=== PATIENT | female | born 2000 | race American Indian/Alaskan Native ===

== ENCOUNTER 2020-05-06 15:05 | Emergency (ER) | payer OTHER ==
--- OUTSIDE RECORDS SUMMARY | 2020-05-06 15:06 | XMS REPORT | Summary of Care ---
:1999 Author Organization [facility] - Health Address [address] [place] [address] Care Team Providers Name Role Phone Ion Ramirez Medicaid Hmo Marshall Hale MD Primary Care Provider Encounter Details Date Type Department Care Team Description 02/18/2020 Orders Only [facility] Doctor Unassigned, No [address] [facility] [place] [address] [address] [place] [address] Allergies Active Allergy Reactions Severity Noted Date Comments Amoxicillin-Pot Clavulanate Rash 10/14/2014 Diphenhydramine Hcl Hives 10/14/2014 Penicillins Hives Low 05/21/2017 Sulfa (Sulfonamide Antibiotics) Hives 5 Pt allergic to Bactrum documented as of this encounter (statuses as of 02/25/2020) Medications Medication Sig Dispensed Refills Start Date End Date Status proMETHazine 25 mg Take 1 tablet by 30 tablet 0 01/17/2020 Active tabletIndications: mouth every 6 Supervision of high (six) hours as risk in first needed for Nausea trimester and Vomiting (N/V). multivitamin Take 1 tablet by 90 tablet 3 01/17/2020 Active ( VITAMIN) mouth daily. tabletIndications: Supervision of high risk in first trimester Miscellaneous Medical Use as directed 1 Each 0 01/17/2020 Active Supply (BLOOD PRESSURE CUFF) MiscIndications: Elevated blood pressure reading without diagnosis of hypertension documented as of this encounter (statuses as of 02/25/2020) Active Problems Problem Noted Date care, first trimester 02/10/2020 UTI (urinary tract infection) during 020 Overview: Pending ELSLIE Supervision of high-risk 01/17/2020 Nausea and vomiting in 01/17/2020 History of seizure 01/17/2020 Overview: Reports as child last at age 1 Elevated blood pressure reading without diagnosis of h ypertension 01/17/2020 Class 1 obesity with body mass index (BMI) of 30.0 to 30.9 in adult, 10/21/2019 unspecified obesity type, unspecified whether serious comorbidity present Obesity in 10/21/2019 Estimated Date of Delivery Comments Yes 09/24/2020 Based on last menstr ual period of 12/19/2019 (Exact Date) documented as of this encounter (statuses as of 02/25/2020) Resolved Problems Problem Noted Date Resolved Date Screening examination for STD (sexually transmitted disease) 10/19/2018 01/17/2020 Encounter for initial prescription of contraceptives 016 09/19/2017 Irregular menstrual cycle 07/22/2016 01/17/2020 Nexplanon insertion 10/14/2014 09/19/2017 Risky sexual behavior 10/14/2014 09/19/2017 Encounter for routine gynecological examination 10/14/2014 09/19/2017 Overview: ICD10 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 documented as of this encounter (statuses as of 02/25/2020) Immunizations Name Administration Dates Next Due Tdap 04/15/2014 documented as of this encounter Social History Tobacco Use Types Packs/Day Years Used Date Never Smoker Smokeless Tobacco: Never Used Alcohol Use Drinks/Week oz/Week Comments No Estimated Date of Delivery Comments Yes 09/24/2020 Based on last menstr ual period of 12/19/2019 (Exact Date) Sex Assigned at Date Recorded Not on file Job Start Date Occupation Industry Not on file Not on file Not on file Travel History Travel Start Travel End No recent travel history available. COVID-19 Exposure Response Date Recorded In the last month, have you been in contact with No / Unsure 02/18/2020 1:15 PM CDT someone who was confirmed or suspected to have Coronavirus / COVID-19? documented as of this encounter Last Filed Vital Signs Not on filedocumented in this encounter Plan of Treatment Date Type Specialty Care Team Description 02/26/2020 Reconstructive Surgeon Visit Phlebotomy 2, Adc Lab 03/16/2020 Routine Visit Obstetrics & Hale, Esme Olivares MD Gynecology [address] [place] [address] [address]. Flores [place] [id number] 15 [phone] Health Maintenance Due Date Last Done Comments WELL CARE VISIT: 12-01/10/2020 2019 YEARS (yearly) Depression Screening 04/24/2020 04/24/2019 HPV VACCINES (1 - Female 10/21/2020 Postpon ed from 2-dose series) 2010 (Refu sed) INFLUENZA VACCINE (Season 10/21/2020 Postpo vipin from Ended) 05/12/2020 (Refu sed) MENINGOCOCCAL B VACCINES (1 10/21/2020 Post poned from of 2 - Risk Bexsero 2-dose 01/09 (Insurance / series) Financial) CHLAMYDIA SCREENING 01/16/2021 01/17/2020, 10/21/2019, 10/21/2019, Additional history exists PAP SMEAR 01/16/2023 01/17/2020 DTaP,Tdap,and Td Vaccines 04/15/2024 04/15/2014 (2 - Td) MENINGOCOCCAL VACCINE Aged Out No longer eligible based on patient 's age to complete this topic PNEUMOCOCCAL 0-64 YEARS Aged Out No longe r eligible COMBINED SERIES based on patient 's age to complete this topic documented as of this encounter Procedures Procedure Name Priority Date/Time Associated Diagnosis Comme nts MANAGEMENT PSYCHOLOGIST CLINIC ULTRASOUND Routine 02/18/2020 12:01 AM CDT documented in this encounter Results Not on filedocumented in this encounter Insurance Payer Benefit Plan / Subscriber ID Effective Dates Phone Addre ss Type Group AETNA AETNA HMO [id number] 2015-[facility]en O t [facility] MEDICAID OF xxxxxxxxx 2020-Present [phone] [address] Medicaid [place] [address] [place] [address] documented as of this encounter Advance Directives Name Relationship Healthcare Agent Communication Relationship Christina Bueno Mother Primary healthcare agent
--- OUTSIDE RECORDS SUMMARY | 2020-05-06 15:07 | XMS REPORT | Summary of Care ---
:1999 Author Organization [facility] - [facility] Address [address] [place] [address] Care Team Providers Name Role Phone Ion Ramirez Medicaid Hmo Marshall Hale MD Primary Care Provider Reason for Visit Reason Comments Results Encounter Details Date Type Department Care Team Description 03/05/2020 Telephone [facility] Saul Cam RN Results [address] [address] [place] [address] Allergies Active Allergy Reactions Severity Noted Date Comments Amoxicillin-Pot Clavulanate Rash 10/14/2014 Diphenhydramine Hcl Hives 10/14/2014 Penicillins Hives Low 05/21/2017 Sulfa (Sulfonamide Antibiotics) Hives 5 Pt allergic to Bactrum documented as of this encounter (statuses as of 03/05/2020) Medications Medication Sig Dispensed Refills Start Date [...] as of this encounter (statuses as of 03/05/2020) Active Problems Problem Noted Date care, first trimester 02/10/2020 UTI (urinary tract infection) during 020 Overview: Pending LESLIE Supervision of high-risk 01/17/2020 Nausea and vomiting [...] as of this encounter (statuses as of 03/05/2020) Resolved Problems Problem Noted Date Resolved Date Screening examination for STD (sexually transmitted disease) 10/19/2018 01/17/2020 Encounter for initial prescription of contraceptives 016 09/19/2017 Irregular menstrual cycle 07/22/2016 01/17/2020 Nexplanon insertion 10/14/2014 09/19/2017 Risky sexual behavior 10/14/2014 09/19/2017 Encounter for routine gynecological examination 10/14/2014 09/19/2017 Overview: ICD10 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 documented as of this encounter Last Filed Vital Signs Not on filedocumented in this encounter Plan of Treatment Date Type Specialty Care Team Description 03/16/2020 Routine Obstetrics & Hale, Esme Olivares MD Visit Gynecology [address] [place] [address] [address]. Flores [place], [place] [address] [phone] Health Maintenance Due Date Last Done Comments [...] this topic documented as of this encounter Results Not on filedocumented in this encounter Insurance Payer Benefit Plan / Subscriber ID Effective Dates Phone Addre ss Type Group AETNA AETNA HMO [id number] 2015-[facility]en [facility] O t [facility] MEDICAID OF xxxxxxxxx 2020-Present [phone] [address] Medicaid [place] [id number] [place] [phone] documented as of this encounter Advance Directives Name Relationship Healthcare Agent Communication Relationship Christina Bueno Mother Primary healthcare agent
--- OUTSIDE RECORDS SUMMARY | 2020-05-06 15:07 | XMS REPORT | Summary of Care ---
:1999 Author Organization [facility] - [facility] Address [address] [place] [address] Care Team Providers Name Role Phone Ion Ramirez Medicaid Hmo Marshall Hale MD Primary Care Provider Reason for Visit Reason Comments Notification Encounter Details Date Type Department Care Team Description 03/02/2020 Telephone [facility] Women[facility] Esme Hale MD Notification Healthcare- [address] [place] [address] [address] [place] [address] [place] [address] [phone] Allergies Active Allergy Reactions Severity Noted Date Comments Amoxicillin-Pot Clavulanate Rash 10/14/2014 Diphenhydramine Hcl Hives 10/14/2014 Penicillins Hives Low 05/21/2017 Sulfa (Sulfonamide Antibiotics) Hives 5 Pt allergic to Bactrum documented as of this encounter (statuses as of 03/02/2020) Medications Medication Sig Dispensed Refills Start Date [...] as of this encounter (statuses as of 03/02/2020) Active Problems Problem Noted Date care, first [...] as of this encounter (statuses as of 03/02/2020) Resolved Problems Problem Noted Date Resolved Date Screening examination for STD (sexually transmitted disease) 10/19/2018 01/17/2020 Encounter for initial prescription of contraceptives 016 09/19/2017 Irregular menstrual cycle 07/22/2016 01/17/2020 Nexplanon insertion 10/14/2014 09/19/2017 Risky sexual behavior 10/14/2014 09/19/2017 Encounter for routine gynecological examination 10/14/2014 09/19/2017 Overview: ICD10 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 Flores [place], [place] [address] [phone] Health Maintenance Due Date Last Done Comments WELL CARE VISIT: 12-21 01/10/2020 2019 YEARS (yearly) Depression Screening 04/24/2020 04/24/2019 [...] Addre ss Type Group AETNA AETNA HMO [id number] [facility] MEDICAID OF xxxxxxxxx 2020-Present [phone] [address] Medicaid [place] [address] [place] [address] documented as of this encounter Advance Directives Name Relationship Healthcare Agent Communication Relationship Christina Bueno Mother Primary healthcare agent
--- OUTSIDE RECORDS SUMMARY | 2020-05-06 15:07 | XMS REPORT | Summary of Care ---
:[address] [facility] Address [address] [place] [address] Care Team Providers Name Role Phone Ion Ramirez Medicaid Hmo Marshall Hale MD Primary Care Provider Reason for Visit Reason Comments ROUTINE VISIT Encounter Details Date Type Department Care Team Description 02/18/2020 Routine [facility] Women's Esme Hale am, MD Supervision of high risk in fi rst trimester (Primary Dx); Visit Healthcare- [address] [place] [address] 8 weeks station of [place] [address] [place] [address] Drive, [address] [place] [address] [phone] Allergies Active Allergy Reactions Severity Noted Date Comments Amoxicillin-Pot Clavulanate Rash 10/14/2014 Diphenhydramine Hcl Hives 10/14/2014 Penicillins Hives Low 05/21/2017 Sulfa (Sulfonamide Antibiotics) Hives 5 Pt allergic to Bactrum documented as of this encounter (statuses as of 02/26/2020) Medications Medication Sig Dispensed Refills Start Date End Date Status proMETHazine 25 mg Take 1 tablet 30 tablet 0 01/17/2020 Active tabletIndications: by mouth Supervision of every 6 (six) high risk hours as in first needed for trimester Nausea and Vomiting (N/V). Take 1 tablet 90 tablet 3 01/17/2020 Activ e multivitamin by mouth ( VITAMIN) daily. tabletIndications: Supervision of high risk in first trimester Miscellaneous Use as 1 Each 0 01/17/2020 Activ e Medical Supply directed (BLOOD PRESSURE CUFF) MiscIndications: Elevated blood pressure reading without diagnosis of hypertension Nitrofurantoin&Nit Take 1 20 capsule 0 01/20/2020 Discontinued . Macrocryst capsule by 0 (Patie nt (MACROBID) 100 mg mouth 2 (two) Reported) capsuleIndications times daily. : Urinary tract infection in mother during , antepartum documented as of this encounter (statuses as of 02/26/2020) Active Problems Problem Noted Date care, first [...] as of this encounter (statuses as of 02/26/2020) Resolved Problems Problem Noted Date Resolved Date Screening examination for STD (sexually transmitted disease) 10/19/2018 01/17/2020 Encounter for initial prescription of contraceptives 016 09/19/2017 Irregular menstrual cycle 07/22/2016 01/17/2020 Nexplanon insertion 10/14/2014 09/19/2017 Risky sexual behavior 10/14/2014 09/19/2017 Encounter for routine gynecological examination 10/14/2014 09/19/2017 Overview: ICD10 Diagnosis 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 documented as of this encounter (statuses as of 02/26/2020) Immunizations Name Administration Dates Next Due Tdap [...] of this encounter Last Filed Vital Signs Vital Sign Reading Time Taken Comments Blood Pressure 117/69 02/18/2020 1:29 PM CDT Pulse 71 02/18/2020 1:29 PM CDT Temperature 36.6 C (97.9 F) 02/18/2020 1:29 PM CDT Respiratory Rate 18 02/18/2020 1:29 PM CDT Oxygen Saturation - - Inhaled Oxygen Concentration - - Weight 73 kg (161 lb) 02/18/2020 1:29 PM CDT Height 152.4 cm (5') 02/18/2020 1:29 PM CDT Body Mass Index 31.44 02/18/2020 1:29 PM CDT documented in this encounter Progress Notes Esme Hale MD - 02/18/2020 1:15 PM CDT Chief complaint: Chief Complaint Patient presents with ROUTINE VISIT HPI Gem Hackett is a 20 year old female @ 8w5d by Patient's last menstrual period was 12/19/2019 (exact date). here for visit. Denies vaginal bleeding or cramping. Histories OB History Para Term AB Living 1 0 0 0 0 0 SAB TAB Ectopic Multiple Live Births 0 0 0 0 0 # Outcome Date GA Lbr Michael/2nd Weight Sex Delivery Anes PTL Lv 1 Current Past Medical History: Diagnosis Date Asthma Childhood Febrile seizure 1999 Childhood Irregular menstrual cycle 07/22/2016 Screening examination for STD (sexually transmitted disease) Family History Problem Relation Age of Onset Asthma Maternal Aunt No Significant Medical Problems Paternal Aunt High cholesterol Maternal Grandfather Hypertension Maternal Grandfather No Significant Medical Problems Mother No Significant Medical Problems Father No Significant Medical Problems Brother No Significant Medical Problems Maternal Uncle No Significant Medical Problems Paternal Uncle No Significant Medical Problems Maternal Grandmother Arthritis NoFHx defects NoFHx Breast Cancer NoFHx Colon Cancer NoFHx Ovarian Cancer NoFHx Uterine Cancer NoFHx Cancer NoFHx Depression NoFHx Diabetes NoFHx Genetic NoFHx Heart NoFHx Neurological NoFHx Osteoporosis NoFHx Psychiatry NoFHx Other - see comments NoFHx Mental retardation NoFHx Family Status Relation Name Status MAunt Alive PAunt Alive MGFa Alive Mo Alive Fa Alive Bro Alive MUnc Alive PUnc Alive MGMo Alive PGMo Alive PGFa NoFHx (Not Specified) Past Surgical History: Procedure Laterality Date TONSILLECTOMY 09/2016 Social History Socioeconomic History Marital status: Single Spouse name: Not on file Number of children: Not on file Years of education: 9 Highest education level: Not on file Occupational History Occupation: student Social Needs Financial resource strain: Not on file Food insecurity: Worry: Not on file Inability: Not on file Transportation needs: Medical: Not on file Non-medical: Not on file Tobacco Use Smoking status: Never Smoker Smokeless tobacco: Never Used Substance and Sexual Activity Alcohol use: No Drug use: No Sexual activity: Yes Partners: Male control/protection: None Comment: last sexual intercourse: 01/06/2020 Lifestyle Physical activity: Days per week: Not on file Minutes per session: Not on file Stress: Not on file Relationships Social connections: Talks on phone: Not on file Gets together: Not on file Attends spiritism service: Not on file Active member of club or organization: Not on file Attends meetings of clubs or organizations: Not on file Relationship status: Not on file Intimate partner violence: Fear of current or ex partner: Not on file Emotionally abused: Not on file Physically abused: Not on file Forced sexual activity: Not on file Other Topics Concern Service Not Asked Blood Transfusions No Caffeine Concern Not Asked Occupational Exposure Not Asked Hobby Hazards Not Asked Sleep Concern Not Asked Stress Concern Not Asked Weight Concern Not Asked Special Diet Not Asked Back Care Not Asked Exercise Not Asked Bike Helmet Not Asked Seat Belt Not Asked Self-Exams Not Asked Social History Narrative Patient lives with mother and brothers, feels safe at home. Patient has 1 dog. Social History Substance and Sexual Activity Sexual Activity Yes Partners: Male control/protection: None Comment: last sexual intercourse: 01/06/2020 Labs No new labs Radiology No new radiology. Allergies Gem is allergic to augmentin [amoxicillin-pot clavulanate]; benadryl [diphenhydramine hcl]; sulfa (sulfonamide antibiotics); and penicillins. Medications Gem has a current medication list which includes the following prescription(s): miscellaneous medical supply, multivitamin, and promethazine. Review of Systems Constitutional: Negative for chills, fatigue and fever. HENT: Negative for congestion, rhinorrhea, sneezing and sore throat. Eyes: Negative for photophobia and visual disturbance. Respiratory: Negative for cough, chest tightness, shortness of breath and wheezing. Cardiovascular: Negative for chest pain and palpitations. Gastrointestinal: Negative for abdominal distention, abdominal pain, constipation, diarrhea, nausea and vomiting. Genitourinary: Negative for dysuria, urgency, frequency, vaginal bleeding and vaginal discharge. Skin: Negative for rash. Neurological: Negative for syncope and headaches. Hematological: Does not bruise/bleed easily. BP 117/69 (BP Location: Left arm, Patient Position: Sitting, BP CUFF SIZE: Adult Medium) | Pulse 71 | Temp 36.6 C (97.9 F) (Oral) | Resp 18 | Ht 5' (1.524 m) | Wt 161 lb (73 kg) | LMP 12/19/2019 (Exact Date) | BMI 31.44 kg/m Pregravid BMI: 31.8 Physical Exam Vitals reviewed. Constitutional: She is oriented to person, place, and time. Her body habitus is obese. Cardiovascular: Regular rate and rhythm. Pulmonary/Chest: Normal inspiratory effort. Abdominal: Abdomen is soft. No tenderness present. No hernia palpated or inspected. Neuro/Psychiatric: She has a normal mood and affect. She is oriented to person, place, and time. Skin: Skin normal. No rash present. Assessment/Plan See OB Summary Return to clinic in 4 weeks. Reviewed patient instructions and provided printed copy. Activity restrictions: As tolerated at 8w5d This visit did not involve counseling and coordination that comprised more than 50% of the visit time. Esme Hale MD 02/18/2020 5:21 PM documented in this encounter Plan of Treatment Date Type Specialty Care Team Description 03/16/2020 Routine Obstetrics & Esme Hale MD Visit Gynecology [address] [place] [address] [address] [place] [address] [phone] Health Maintenance Due Date Last Done Comments WELL CARE VISIT: 08-3101/10/2020 2019 YEARS (yearly) Depression Screening 04/24/2020 04/24/2019 [...] Name Priority Date/Time Associated Diagnosis Comme nts <14 WEEKS US Routine 02/18/2020 5:13 Supervision of high Resu lts for this LIMITED PM CDT risk in [facility] are in first trimester the results 8 weeks gestation of section . ADC / LCC - DRUG Routine 02/18/2020 3:00 8 weeks gestation of Results for this SCREEN TRIAGE PM CDT procedure are in the results section. URINE CULTURE Routine 02/18/2020 3:00 8 weeks gestation of Re sults for this PM CDT procedure are i n the results section. POCT URINALYSIS W/O Routine 02/18/2020 8 weeks gestation of Results for this SPECIFIC GRAVITY procedure a re in the results section. documented in this encounter Results <14 WEEKS US LIMITED (02/18/2020 5:13 PM CDT) Specimen Narrative Performed At This result has an attachment that is no t available. Limited USG for FHT: Single live IUP measured 9 1/7 weeks, consistent PACS with LMP. Will date by LMP unless indicated Panfilo Hale MD 02/18/2020 5:15 PM Performing Organization Address City/State/Zipcode Phone Number PACS ADC / LCC - DRUG SCREEN TRIAGE (02/18/2020 3:00 PM CDT) Pathologist Sig nature BENZO U Negative Negative [facility] ANDREI U Negative Negative [facility] AMPHET Negative Negative [facility] THC Negative Negative [facility] METHADONE Negative Negative [facility] Meth U Negative Negative [facility] OPIATES Negative Negative [facility] Cocaine Metabolite Negative Negative [facility] PROPOXY Negative Negative [facility] Tric U Negative Negative [facility] PCP Negative Negative [facility] OXYCOD Negative Negative [facility] Specimen Urine - URINE, CLEAN CATCH Narrative Performed At Urine Drug Cutoff Ranges [facility] Benzodiazepines: 150 ng/mL Barbiturates: 200 ng/mL Amphetamine: 500 ng/mL Cannabinoids: 50 ng/mL Methadone: 200 ng/mL Methamphetamine: 500 ng/mL Opiates: 100 ng/mL or 2000 ng/mL Cocaine: 150 ng/mL Propoxyphene: 300 ng/mL Tricyclics: 300 ng/mL Oxycodone: 100 ng/mL PCP: 25 ng/mL The results are to be used only for medical (i.e., treatment) purposes. Unconfirmed screening results must not be used for non-medical purposes (e.g., employment testing, legal testing). Performing Organization Address City[facility] Phone Number [facility] CLIA: [id number], [address] [place], [place] [address] URINE CULTURE (02/18/2020 3:00 PM CDT) Pathologist Sig nature URINE CULTURE No aerobic growth [facility] (< 1000 CFU/mL) SERVICES Specimen Urine - URINE, CLEAN CATCH Performing Organization Address City/[facility] Phone Number [facility] CLIA: [id number], [address] [place], [place] [address] [facility] POCT URINALYSIS W/O SPECIFIC GRAVITY (02/18/2020) Pathologist Sig nature POCT PH U N/A 5 - 8 mg/dl POCT U LEUK EST N/A Negative - Negative POCT U NIT N/A Negative - Negative POCT U PROT Negative Negative - Negative POCT U GLU Negative Negative - Negative POCT U KETONE N/A Negative - Negative POCT U BLD N/A Negative - Negative Specimen Urine - URINE, CLEAN CATCH documented in this encounter Visit Diagnoses Diagnosis Supervision of high risk in fi rst trimester - Primary Unspecified high-risk 8 weeks gestation of state, incidental documented in this encounter Insurance Payer Benefit Plan / Subscriber ID Effective Dates Phone Addre ss Type Group AETNA AETNA O [id number] 2015-[facility] O t [facility] MEDICAID OF xxxxxxxxx 2020-Present [phone] Medicaid [place] [id number] [place] [phone] documented as of this encounter Advance Directives Name Relationship Healthcare Agent Communication Relationship Christina Bueno Mother Primary healthcare agent "
--- OUTSIDE RECORDS SUMMARY | 2020-05-06 15:07 | XMS REPORT | Summary of Care ---
:1999 Author Organization [facility] Address [address] [place] [address] Care Team Providers Name Role Phone Ion Ramirez Medicaid Hmo Marshall Hale MD Primary Care Provider Reason for Visit Reason Comments TEST RESULTS Panorama Low Risk / Female Encounter Details Date Type Department Care Team Description 03/11/2020 Case Management [facility] Women's Esme [place] MD TEST RESULTS Healthcare- [address] ([facility] / [address] [place] [address] [address], [address] [address] [phone] Allergies Active Allergy Reactions Severity Noted Date Comments Amoxicillin-Pot Clavulanate Rash 10/14/2014 Diphenhydramine Hcl Hives 10/14/2014 Penicillins Hives Low 05/21/2017 Sulfa (Sulfonamide Antibiotics) Hives 5 Pt allergic to Bactrum documented as of this encounter (statuses as of 03/11/2020) Medications Medication Sig Dispensed Refills Start Date [...] as of this encounter (statuses as of 03/11/2020) Active Problems Problem Noted Date care, first [...] as of this encounter (statuses as of 03/11/2020) Resolved Problems Problem Noted Date Resolved Date Screening examination for STD (sexually transmitted disease) 10/19/2018 01/17/2020 Encounter for initial prescription of contraceptives 016 09/19/2017 Irregular menstrual cycle 07/22/2016 01/17/2020 Nexplanon insertion 10/14/2014 09/19/2017 Risky sexual behavior 10/14/2014 09/19/2017 Encounter for routine gynecological examination 10/14/2014 09/19/2017 Overview: ICD10 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 Patient can discuss Panorama results with provider on 03/16/20 PN visit. documented in this encounter Plan of Treatment Date Type Specialty Care Team Description 03/16/2020 Routine Visit Obstetrics & [place], Esme Olivares MD Gynecology [address] [place] [address] DR. Flores [place], [place] [address] [phone] 03/17/2020 Therapist Rrt Visit Maternal 5, [facility] Room Medicine Health Maintenance Due Date Last Done Comments WELL CARE VISIT: -01/10/2020 2019 YEARS (yearly) Depression Screening 04/24/2020 04/24/2019 HPV VACCINES (1 - Female 10/21/2020 Postpon ed from 2-dose series) 2010 (Refu sed) INFLUENZA VACCINE (#1) 2020 Postponed from 05/12/2020 (Refu sed) MENINGOCOCCAL B VACCINES (1 [...] Addre ss Type Group AETNA AETNA HMO [id number] 2015-Presen HM O t [facility] MEDICAID OF xxxxxxxxx 2020-Present [phone] [place] [id number] [place] [address] documented as of this encounter Advance Directives Name Relationship Healthcare Agent Communication Relationship Christina Bueno Mother Primary healthcare agent
--- OUTSIDE RECORDS SUMMARY | 2020-05-06 15:07 | XMS REPORT | Summary of Care ---
:1999 Author Organization [facility] Address [address] [place] [address] Care Team Providers Name Role Phone Ion Ramirez Medicaid Hmo Marshall Hale MD Primary Care Provider Reason for Visit Reason Comments Exposure asymptomatic- COVID Encounter Details Date Type Department Care Team Description 03/03/2020 Laboratory Only [facility] Family Jess El, SOCIAL SERVICES COORDINATOR [address] [address] Suspected Covid-19 Medicine - [place] [facility], Adc Fam Pob I Virus Infection [address] [place] [address] (Primary [place]) [place] [address] Allergies Active Allergy Reactions Severity Noted Date Comments Amoxicillin-Pot Clavulanate Rash 10/14/2014 Diphenhydramine Hcl Hives 10/14/2014 Penicillins Hives Low 05/21/2017 Sulfa (Sulfonamide Antibiotics) Hives 5 Pt allergic to Bactrum documented as of this encounter (statuses as of 03/03/2020) Medications Medication Sig Dispensed Refills Start Date [...] as of this encounter (statuses as of 03/03/2020) Active Problems Problem Noted Date care, first [...] as of this encounter (statuses as of 03/03/2020) Resolved Problems Problem Noted Date Resolved Date Screening examination for STD (sexually transmitted disease) 10/19/2018 01/17/2020 Encounter for initial prescription of contraceptives 016 09/19/2017 Irregular menstrual cycle 07/22/2016 01/17/2020 Nexplanon insertion 10/14/2014 09/19/2017 Risky sexual behavior 10/14/2014 09/19/2017 Encounter for routine gynecological examination 10/14/2014 09/19/2017 Overview: ICD10 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 Flores [place], [place] [address] [phone] Health Maintenance Due Date Last Done Comments [...] Results Not on filedocumented in this encounter Visit Diagnoses Diagnosis Suspected Covid-19 Virus Infection - [facility] documented in this encounter Insurance Payer Benefit Plan / Subscriber ID Effective Dates Phone Addre ss Type Group AETNA AETNA HMO [id number] 2015-Presen HM O t [facility] MEDICAID OF xxxxxxxxx 2020-Present [phone] [address] Medicaid [place] [id number] [place] [address] documented as of this encounter Advance Directives Name Relationship Healthcare Agent Communication Relationship Christina Bueno Mother Primary healthcare agent
--- OUTSIDE RECORDS SUMMARY | 2020-05-06 15:07 | XMS REPORT | Summary of Care ---
:1999 Author Organization [facility] - [facility] Address [address] [place] [address] Care Team Providers Name Role Phone Ion Ramirez Medicaid Hmo Marshall Hale MD Primary Care Provider Reason for Visit Reason Comments Exposure asymptomatic- COVID Encounter Details Date Type Department Care Team Description 03/03/2020 Laboratory Only [facility] Family Jess El, STRAIGHT KNIFE CUTTER MACHINE [address] [address] Suspected Covid-19 Medicine - [place] [facility], Adc Fam Pob I Virus Infection [address] [place] [address] ([place] [address] Allergies Active Allergy Reactions Severity [...] examination 10/14/2014 09/19/2017 Overview: ICD10 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 Flores [place], [place] [address] [phone] Name Type Priority Associated Diagnoses Order S lisale COVID-19 (PCR MOLECULAR LAB Routine Suspected Covid-1 9 Virus Expected: 03/03/2020, TESTING) Infection Expires: 2020 Health Maintenance Due Date Last Done Comments [...] Diagnoses Diagnosis Suspected Covid-19 Virus Infection - Mayra deven documented in this encounter Insurance Payer Benefit Plan / Subscriber ID Effective Dates Phone Addre ss Type Group AETNA AETNA HMO [id number] 2015-Leah O t [facility] MEDICAID OF xxxxxxxxx 2020-Present [phone] [address] Medicaid [place] [id number] [place] [id number] documented as of this encounter Advance Directives Name Relationship Healthcare Agent Communication Relationship Christina Bueno Mother Primary healthcare agent
--- OUTSIDE RECORDS SUMMARY | 2020-05-06 15:07 | XMS REPORT | Summary of Care ---
:1999 Author Organization [facility] - [facility] Address [address] [place] [address] Care Team Providers Name Role Phone Ion Ramirez Medicaid Hmo Marshall Hale MD Primary Care Provider Reason for Visit Reason Comments TEST RESULTS HORIZON NEGATIVE Encounter Details Date Type Department Care Team Description 03/04/2020 Case Management [facility] Women's Esme Hale MD TEST RESULTS Healthcare- [address] (HORIZON NEGATIVE) [address] [place] [address] DR[address] Kend[address], [address] [address] [phone] Allergies Active Allergy Reactions Severity Noted Date Comments Amoxicillin-Pot Clavulanate Rash 10/14/2014 Diphenhydramine Hcl Hives 10/14/2014 Penicillins Hives Low 05/21/2017 Sulfa (Sulfonamide Antibiotics) Hives 5 Pt allergic to Bactrum documented as of this encounter (statuses as of 03/04/2020) Medications Medication Sig Dispensed Refills Start Date [...] as of this encounter (statuses as of 03/04/2020) Active Problems Problem Noted Date care, first [...] as of this encounter (statuses as of 03/04/2020) Resolved Problems Problem Noted Date Resolved Date Screening examination for STD (sexually transmitted disease) 10/19/2018 01/17/2020 Encounter for initial prescription of contraceptives 016 09/19/2017 Irregular menstrual cycle 07/22/2016 01/17/2020 Nexplanon insertion 10/14/2014 09/19/2017 Risky sexual behavior 10/14/2014 09/19/2017 Encounter for routine gynecological examination 10/14/2014 09/19/2017 Overview: ICD10 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 documented in this encounter Plan of Treatment Date Type Specialty Care Team Description 03/16/2020 Routine Obstetrics & [place], Esme Olivares MD Visit Gynecology [address] [place] [address] [address]. Flores [place], [place] [address] [phone] Health Maintenance Due Date Last Done Comments [...] Addre ss Type Group AETNA AETNA HMO [id number] 2015-Leah O t [facility] MEDICAID OF xxxxxxxxx 2020-Present [phone] [address] Medicaid [place] [address] [place] [address] documented as of this encounter Advance Directives Name Relationship Healthcare Agent Communication Relationship Christina Bueno Mother Primary healthcare agent
--- OUTSIDE RECORDS SUMMARY | 2020-05-06 15:07 | XMS REPORT | Summary of Care ---
:1999 Author Organization [facility] - [facility] Address [address] [place] [address] Care Team Providers Name Role Phone Ion Ramirez Medicaid Hmo Marshall Hale MD Primary Care Provider Reason for Visit Reason Comments Results Gender Encounter Details Date Type Department Care Team Description 03/09/2020 Telephone [facility] Women's Esme [place] MD Results (Gender) Healthcare- [address] [place] [address] [place] [address] [phone] Allergies Active Allergy Reactions Severity Noted Date Comments Amoxicillin-Pot Clavulanate Rash 10/14/2014 Diphenhydramine Hcl Hives 10/14/2014 Penicillins Hives Low 05/21/2017 Sulfa (Sulfonamide Antibiotics) Hives 5 Pt allergic to Bactrum documented as of this encounter (statuses as of 03/10/2020) Medications Medication Sig Dispensed Refills Start Date [...] as of this encounter (statuses as of 03/10/2020) Active Problems Problem Noted Date care, first [...] as of this encounter (statuses as of 03/10/2020) Resolved Problems Problem Noted Date Resolved Date Screening examination for STD (sexually transmitted disease) 10/19/2018 01/17/2020 Encounter for initial prescription of contraceptives 016 09/19/2017 Irregular menstrual cycle 07/22/2016 01/17/2020 Nexplanon insertion 10/14/2014 09/19/2017 Risky sexual behavior 10/14/2014 09/19/2017 Encounter for routine gynecological examination 10/14/2014 09/19/2017 Overview: ICD10 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 Flores [place], [place] [address] [phone] 03/17/2020 Polisher Sand Visit Maternal 5, [facility] Usg Room Medicine Health Maintenance Due Date Last [...] Addre ss Type Group AETNA AETNA O [id number] 2015-Presen HM O t [facility] MEDICAID OF xxxxxxxxx 2020-Present [phone] [address] Medicaid [place] [id number] [place] [address] documented as of this encounter Advance Directives Name Relationship Healthcare Agent Communication Relationship Chritsina Bueno Mother Primary healthcare agent
--- OUTSIDE RECORDS SUMMARY | 2020-05-06 15:08 | XMS REPORT | Summary of Care ---
:1999 Author Organization [facility] Address [address] [place] [address] Care Team Providers Name Role Phone Ion Ramirez Medicaid Hmo Marshall Hale MD Primary Care Provider Reason for Visit Reason Comments ULTRASOUND (Routine) Status Reason Specialty Diagnoses / Referred By Referred To Procedures Contact Contact Authorized Maternal Diagnoses Supervision of high risk in first trimester [place], Medicine Procedures CONSULT MATERNAL MEDICINE ULTRASOUND Preferred Location: [facility], [facility] [address] [place] [address] Encounter Details Date Type Department Care Team Description 03/17/2020 Tapping Machine Operator [facility] [address] [place] [address] [id number] [place] [address] Uterine size-date discrepancy in first t [address] Usg Room Encounter for screening for nu chal translucency [facility] [address] [facility], [address] [place] [address] Allergies Active Allergy Reactions Severity Noted Date Comments Amoxicillin-Pot Clavulanate Rash 10/14/2014 Diphenhydramine Hcl Hives 10/14/2014 Penicillins Hives Low 05/21/2017 Sulfa (Sulfonamide Antibiotics) Hives 5 Pt allergic to Bactrum documented as of this encounter (statuses as of 03/17/2020) Medications Medication Sig Dispensed Refills Start Date [...] blood pressure reading without diagnosis of hypertension acetaminophen (TYLENOL Take 500 mg by 0 Active EXTRA STRENGTH) 500 mg mouth every 6 tablet (six) hours as needed for Pain. documented as of this encounter (statuses as of 03/17/2020) Active Problems Problem Noted Date Supervision of high-risk 01/17/2020 Nausea and vomiting in 01/17/2020 History of seizure 01/17/2020 Overview: Reports as child last at age 1 Elevated blood pressure reading without diagnosis of h ypertension 01/17/2020 Obesity in 10/21/2019 Estimated Date of Delivery Comments Yes 09/24/2020 Based on last menstr ual period of 12/19/2019 (Exact Date) documented as of this encounter (statuses as of 03/17/2020) Resolved Problems Problem Noted Date Resolved Date care, first trimester 02/10/2020 0 UTI (urinary tract infection) during 01/20/2020 03/16/2020 Overview: Pending LESLIE Class 1 obesity with body mass index (BMI) of 30.0 to 30.9 i n 10/21/2019 03/16/2020 adult, unspecified obesity type, unspecified whether serious comorbidity present Screening examination for STD (sexually transmitted disease) 10/19/2018 01/17/2020 Encounter for initial prescription of contraceptives 016 09/19/2017 Irregular menstrual cycle 07/22/2016 01/17/2020 Nexplanon insertion 10/14/2014 09/19/2017 Risky sexual behavior 10/14/2014 09/19/2017 Encounter for routine gynecological examination 10/14/2014 09/19/2017 Overview: ICD10 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 documented as of this encounter Last Filed Vital Signs Not on filedocumented in this encounter Plan of Treatment Date Type Specialty Care Team Description 04/17/2020 Routine Visit Obstetrics & Juana Mcleod, Gynecology BREANA [address] [place] [address] 04/17/2020 Tapping Machine Operator Visit Phlebotomy 2, [facility] Lab Health Maintenance Due Date Last Done Comments [...] Name Priority Date/Time Associated Diagnosis Comme nts FIRST TRIMESTER Routine 03/17/2020 1:31 PM ULTRASOUND CDT documented in this encounter Results FIRST TRIMESTER ULTRASOUND (03/17/2020 1:31 PM CDT) Specimen documented in this encounter Visit Diagnoses Diagnosis Uterine size-date discrepancy in first t rimester Uterine size date discrepancy, antepartu m condition or complication Encounter for screening for nu chal translucency documented in this encounter Insurance Payer Benefit Plan / Subscriber ID Effective Phone Address T ype Group Dates AETNA AETNA O [id number] 2015-Pres HMO ent [employer] xxxxxxxxx 2020-Prese [address]OX Medic aid HEALTH CHOICE - [place] [id number] 1 MANAGED MEDICAID [place], [place] MEDICAID [phone] documented as of this encounter Advance Directives Name Relationship Healthcare Agent Communication Relationship Christina Bueno Mother Primary healthcare agent
--- OUTSIDE RECORDS SUMMARY | 2020-05-06 15:08 | XMS REPORT | Summary of Care ---
:1999 Author Organization [facility] Address [address] [place] [address] Care Team Providers Name Role Phone Ion Ramirez Medicaid Hmo Marshall Hale MD Primary Care Provider Reason for Visit Reason Comments Blood Draw Encounter Details Date Type Department Care Team Description 03/17/2020 Manager Process Improvement Visit [facility] Alonso Burkett MD [address] [place] [address] [id number] [place] [address] 12 weeks gestation of [facility] Allergies Active Allergy Reactions Severity Noted Date [...] tablet (six) hours as needed for Pain. magnesium oxide 400 mg Take 1 tablet by 30 tablet 3 03/16/2020 Active (241.3 mg magnesium) mouth daily. 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 Medic aid HEALTH CHOICE - [place] [id number] 1 MANAGED MEDICAID [place], [place] [id number] documented as of this encounter Advance Directives Name Relationship Healthcare Agent Communication Relationship Christinaconcetta Ramirezanai Mother Primary healthcare agent
--- OUTSIDE RECORDS SUMMARY | 2020-05-06 15:08 | XMS REPORT | Summary of Care ---
:1999 Author Organization [facility] Address [address] [place] [address] Care Team Providers Name Role Phone Ion Ramirez Medicaid Hmo Marshall Hale MD Primary Care Provider Encounter Details Date Type Department Care Team Description 03/18/2020 Abstract [facility]- [facility] Fior Greco, [address] [place] [address] [phone] [place], [place] [address] [phone] Allergies Active Allergy Reactions Severity Noted Date Comments Amoxicillin-Pot Clavulanate Rash 10/14/2014 Diphenhydramine Hcl Hives 10/14/2014 Penicillins Hives Low 05/21/2017 Sulfa (Sulfonamide Antibiotics) Hives 5 Pt allergic to Bactrum documented as of this encounter (statuses as of 03/18/2020) Medications Medication Sig Dispensed Refills Start Date [...] as of this encounter (statuses as of 03/18/2020) Active Problems Problem Noted Date Supervision of high-risk 01/17/2020 Nausea and vomiting in 01/17/2020 History of seizure 01/17/2020 Overview: Reports as child last at age 1 Elevated blood pressure reading without diagnosis of h ypertension 01/17/2020 Obesity in 10/21/2019 Estimated Date of Delivery Comments Yes 09/17/2020 Based on Ultrasound documented as of this encounter (statuses as of 03/18/2020) Resolved Problems Problem Noted Date Resolved Date [...] examination 10/14/2014 09/19/2017 Overview: ICD10 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 documented as of this encounter (statuses as of 03/18/2020) Immunizations Name Administration Dates Next Due TDAP 04/15/2014 documented as of this encounter Social History Tobacco Use Types Packs/Day Years Used Date Never Smoker Smokeless Tobacco: Never Used Alcohol Use Drinks/Week oz/Week Comments No Estimated Date of Delivery Comments Yes 09/17/2020 Based on Ultrasound Sex Assigned at Date Recorded Not on [...] Visit Obstetrics & Juana Mcleod, Gynecology BREANA [address] [address] 04/17/2020 Mannequin Mounter Visit Phlebotomy 2, [facility] Lab Health Maintenance [...] T ype Group Dates AETNA AETNA HMO [id number] 2015-Pres HMO ent [employer] xxxxxxxxx 2020-Prese P[address]O. BOX Medic aid HEALTH CHOICE - HEALTH CHOICE [place] [id number] 1 MANAGED MEDICAID [place], [place] [id number] documented as of this encounter Advance Directives Name Relationship Healthcare Agent Communication Relationship Christina Bueno Mother Primary healthcare agent
--- OUTSIDE RECORDS SUMMARY | 2020-05-06 15:08 | XMS REPORT | Summary of Care ---
:1999 Author Organization [facility] Address [address] [place] [address] Care Team Providers Name Role Phone Ion Ramirez Medicaid Hmo Marshall Hale MD Primary Care Provider Reason for Referral (Routine) Status Reason Specialty Diagnoses / Referred By Referred To Procedures Contact Contact New Request Maternal Diagnoses Supervision of high risk in first trimester 12 weeks gestation of Esme Hale, Medicine Procedures CONSULT MATERNAL MEDICINE ULTRASOUND Preferred Location: Yamileth KAUFFMAN [address] [place] [address] DRRoselia Amarjit [address] [place] [address] Reason for Visit Reason Comments ROUTINE VISIT Encounter Details Date Type Department Care Team Description 03/16/2020 Routine [facility] Women's Esme Hale am, MD Supervision of high risk in fi rst trimester (Primary Dx); Visit Healthcare- [address] [place] [address] History of migraine headaches; Yamileth MILLAN 12 weeks gestation of [address] [facility] [address], [address] [place] [address] [phone] Allergies Active Allergy Reactions Severity Noted Date [...] examination 10/14/2014 09/19/2017 Overview: ICD10 Diagnosis Term Hose Seamer Utility documented as of this encounter (statuses [...] Sign Reading Time Taken Comments Blood Pressure 113/72 03/16/2020 11:04 AM CDT Pulse 69 03/16/2020 11:04 AM CDT Temperature 36.8 C (98.2 F) 03/16/2020 11:04 AM CDT Respiratory Rate 18 03/16/2020 11:04 AM CDT Oxygen Saturation - - Inhaled Oxygen Concentration - - Weight 70.3 kg (155 lb) 03/16/2020 11:04 AM CDT Height 152.4 cm (5') 03/16/2020 11:04 AM CDT Body Mass Index 30.27 03/16/2020 11:04 AM CDT documented in this encounter Progress Notes Esme Hale MD - 03/16/2020 11:00 AM CDT Chief complaint: Chief Complaint Patient presents with ROUTINE VISIT HPI Denies vaginal bleeding or cramping. Histories OB [...] file Gets together: Not on file Attends christian service: Not on file Active member of [...] medication list which includes the following prescription(s): acetaminophen, magnesium oxide, miscellaneous medical supply, multivitamin, and promethazine. Review of Systems Constitutional: Negative for chills, fatigue and fever. HENT: Negative for congestion, rhinorrhea, sneezing and sore throat. Eyes: Negative for photophobia and visual disturbance. Respiratory: Negative for cough, chest tightness, shortness of breath and wheezing. Cardiovascular: Negative for chest pain and palpitations. Gastrointestinal: Negative for abdominal distention, abdominal pain, constipation and diarrhea. Nausea and vomiting once 3 days ago Genitourinary: Negative for dysuria, urgency, frequency, vaginal bleeding and vaginal discharge. Skin: Negative for rash. Neurological: Positive for headaches (daily, tylenol helps for about 1-3 hrs and then MONCADA came back.Had migraines MONCADA and this is the same.). Negative for syncope. Hematological: Does not bruise/bleed easily. BP 113/72 (BP Location: Left arm, Patient Position: Sitting, BP CUFF SIZE: Adult Medium) | Pulse 69 | Temp 36.8 C (98.2 F) (Oral) | Resp 18 | Ht 5' (1.524 m) | Wt 155 lb (70.3 kg) | LMP 12/19/2019 (Exact Date) | BMI 30.27 kg/m Pregravid BMI: 31.8 Physical Exam Vitals [...] printed copy. Activity restrictions: As tolerated at 12w4d This visit did not involve counseling and coordination that comprised more than 50% of the visit time. Esme Hale MD 03/16/2020 2:37 PM documented in this encounter Plan of Treatment Date Type Specialty Care Team Description 03/17/2020 Process Safety Engineer Visit Phlebotomy Alonso Burkett MD [id number] [place] [address] [phone] Arrived [facility] 04/17/2020 Routine Visit Obstetrics & Juana Mcleod, Gynecology PA-Bonnie [address] [place] [id number] 04/17/2020 Process Safety Engineer Visit Phlebotomy 2, Adc Lab Name Type Priority Associated Diagnoses Order S chedule Misc. Sendout- NTD LAB Routine 12 weeks gestation of Expected: 03/17/2020, screening Expires: 2020 Health Maintenance Due Date Last [...] Name Priority Date/Time Associated Diagnosis Comme nts POCT URINALYSIS W/O Routine 03/16/2020 Supervision of high R esults for this SPECIFIC GRAVITY risk in first procedure are in the trimester results section . documented in this encounter Results POCT URINALYSIS W/O SPECIFIC GRAVITY (03/16/2020) Pathologist Sig nature POCT PH U n/a 5 - 8 mg/dl POCT U LEUK EST n/a Negative - Negative POCT U NIT n/a Negative - Negative POCT U PROT neg Negative - Negative POCT U GLU neg Negative - Negative POCT U KETONE n/a Negative - Negative POCT U BLD n/a Negative - Negative Specimen Urine - URINE, CLEAN CATCH documented in this encounter Visit Diagnoses Diagnosis Supervision of high risk in rst trimester - Primary Unspecified high-risk History of migraine headaches Personal history of other disorders of n ervous system and sense organs 12 weeks gestation of state, incidental documented in this encounter Insurance Payer Benefit Plan / Subscriber ID Effective Phone Address T ype Group Dates AETNA AETNA HMO [id number] 2015-Pres HMO [facility] COMMUNITY xxxxxxxxx 2020-Prese P[address]. BOX Medic aid HEALTH CHOICE - HEALTH CHOICE nt [id number] 1 MANAGED MEDICAID [place], [place]ID [phone] documented as of this encounter Advance Directives Name Relationship Healthcare Agent Communication Relationship Christina Bueno Mother Primary healthcare agent "
--- OUTSIDE RECORDS SUMMARY | 2020-05-06 15:08 | XMS REPORT | Summary of Care ---
:1999 Author Organization [facility] Address [address] [place] [id number] Care Team Providers Name Role Phone Ion Ramirez Medicaid Hmo Marshall Hale MD Primary Care Provider Reason for Referral (Routine) Status Reason Specialty Diagnoses / Referred By Referred To Procedures Contact Contact New Request Maternal Diagnoses Supervision of high risk in first trimester 12 weeks gestation of Esme Hale, Medicine Procedures CONSULT MATERNAL MEDICINE ULTRASOUND Preferred Location: Yamileth KAUFFMAN [address] [place] [address] DRRoselia Amarjit [address] [place] [address] Reason for Visit Reason Comments ROUTINE VISIT Encounter Details Date Type Department Care Team Description 03/16/2020 Routine [facility] Women's Esme Hale am, MD Supervision of high risk in fi rst trimester (Primary Dx); Visit Healthcare- [address] [place] [address] History of migraine headaches; Yamileth MILLAN 12 weeks gestation of [address] [facility] [address], [address] [place] [address] [phone] Allergies Active Allergy Reactions Severity Noted Date Comments Amoxicillin-Pot Clavulanate Rash 10/14/2014 Diphenhydramine Hcl Hives 10/14/2014 Penicillins Hives Low 05/21/2017 Sulfa (Sulfonamide Antibiotics) Hives 5 Pt allergic to Bactrum documented as of this encounter (statuses as of 03/16/2020) Medications Medication Sig Dispensed Refills Start Date [...] as of this encounter (statuses as of 03/16/2020) Active Problems Problem Noted Date Supervision of [...] as of this encounter (statuses as of 03/16/2020) Resolved Problems Problem Noted Date Resolved Date [...] examination 10/14/2014 09/19/2017 Overview: ICD10 Diagnosis Term Form Worker Utility documented as of this encounter (statuses as of 03/16/2020) Immunizations Name Administration Dates Next Due TDAP [...] been in contact with No / Unsure 03/16/2020 10:57 AM CDT someone who was confirmed or suspected [...] file Gets together: Not on file Attends faith service: Not on file Active member of [...] Date Type Specialty Care Team Description 03/17/2020 Keel Press Operator Visit Maternal 5, [facility] Usg Room Medicine 04/17/2020 Routine Visit Obstetrics & Juana Mcleod, Gynecology [place] [address] [phone] 04/17/2020 Keel Press Operator Visit Phlebotomy 2, Adc Lab Health [...] fi rst trimester - Primary Unspecified high-risk History of migraine headaches Personal history of other disorders of n ervous system and sense organs 12 weeks gestation of state, incidental documented in this encounter Insurance Payer Benefit Plan / Subscriber ID Effective Phone Address T e Group Dates AETNA AETNA HMO [id number] 2015-Pres HMO [facility] COMMUNITY xxxxxxxxx 2020-Prese [address]. BOX Medic aid HEALTH CHOICE - HEALTH CHOICE nt [id number] 1 MANAGED MEDICAID [place], [place]ID [phone] documented as of this encounter Advance Directives Name Relationship Healthcare Agent Communication Relationship Christina Laniemichaelanai Mother Primary healthcare agent "
--- OUTSIDE RECORDS SUMMARY | 2020-05-06 15:09 | XMS REPORT | Summary of Care ---
:1999 Author Organization [facility] - Health Address [address] [place] [address] Care Team Providers Name Role Phone Ion Ramirez Medicaid Hmo Marshall Hale MD Primary Care Provider Encounter Details Date Type Department Care Team Description 02/26/2020 Orders Only [facility] Doctor Unassigned, No 301 [facility] [place] [address] [address] [place] [address] Allergies Active Allergy Reactions Severity Noted Date Comments Amoxicillin-Pot Clavulanate Rash 10/14/2014 Diphenhydramine Hcl Hives 10/14/2014 Penicillins Hives Low 05/21/2017 Sulfa (Sulfonamide Antibiotics) Hives 5 Pt allergic to Bactrum documented as of this encounter (statuses as of 04/02/2020) Medications Medication Sig Dispensed Refills Start Date [...] as of this encounter (statuses as of 04/02/2020) Active Problems Problem Noted Date Supervision of high-risk 01/17/2020 Nausea and vomiting in 01/17/2020 History of seizure 01/17/2020 Overview: Reports as child last at age 1 Elevated blood pressure reading without diagnosis of h ypertension 01/17/2020 Obesity in 10/21/2019 Estimated Date of Delivery Comments Yes 09/17/2020 Based on Ultrasound documented as of this encounter (statuses as of 04/02/2020) Resolved Problems Problem Noted Date Resolved Date [...] examination 10/14/2014 09/19/2017 Overview: ICD10 Diagnosis Term 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 Meter Repair Supervisor Utility documented as of this encounter (statuses as of 04/02/2020) Immunizations Name Administration Dates Next Due TDAP [...] Obstetrics & Juana Mcleod, Gynecology [place] [address] [phone] 04/17/2020 Field Care Manager Visit Phlebotomy 2, Ad[facility] Lab Health Maintenance [...] Name Priority Date/Time Associated Diagnosis Comme nts SCANNED LAB RESULTS Routine 02/26/2020 12:01 AM CDT documented in this encounter Results SCANNED LAB RESULTS (02/26/2020 12:01 AM CDT) Specimen Performing Organization Address City/State/Zipcode Phone Number HIM documented in this encounter Insurance Payer Benefit Plan / Subscriber ID Effective Dates Phone Addre ss Type Group AETNA AETNA HMO [id number] 2015-Presen HM O t [facility] MEDICAID OF xxxxxxxxx 2020- [phone] [address] Medicaid [place] [id number] [place] [address] documented as of this encounter Advance Directives Name Relationship Healthcare Agent Communication Relationship Christina Bueno Mother Primary healthcare agent
--- OUTSIDE RECORDS SUMMARY | 2020-05-06 15:09 | XMS REPORT | Summary of Care ---
:1999 Author Organization [facility] - Health Address [address] [place] [address] Care Team Providers Name Role Phone Ion Ramirez Medicaid Hmo Marshall Hale MD Primary Care Provider Encounter Details Date Type Department Care Team Description 03/17/2020 Orders Only [facility] Doctor Unassigned, No 301 [facility] [place] [address] [address] [place] [address] Allergies Active Allergy Reactions Severity Noted Date Comments Amoxicillin-Pot Clavulanate Rash 10/14/2014 Diphenhydramine Hcl Hives 10/14/2014 Penicillins Hives Low 05/21/2017 Sulfa (Sulfonamide Antibiotics) Hives 5 Pt allergic to Bactrum documented as of this encounter (statuses as of 03/30/2020) Medications Medication Sig Dispensed Refills Start Date [...] as of this encounter (statuses as of 03/30/2020) Active Problems Problem Noted Date Supervision of high-risk 01/17/2020 Nausea and vomiting in 01/17/2020 History of seizure 01/17/2020 Overview: Reports as child last at age 1 Elevated blood pressure reading without diagnosis of h ypertension 01/17/2020 Obesity in 10/21/2019 Estimated Date of Delivery Comments Yes 09/17/2020 Based on Ultrasound documented as of this encounter (statuses as of 03/30/2020) Resolved Problems Problem Noted Date Resolved Date [...] examination 10/14/2014 09/19/2017 Overview: ICD10 Diagnosis Term Wellness Health Coach Utility documented as of this encounter (statuses as of 03/30/2020) Immunizations Name Administration Dates Next Due TDAP [...] Obstetrics & Juana Mcleod, Gynecology [place] [address] [phone] 04/17/2020 Facilitator Visit Phlebotomy 2, Adc Lab Health Maintenance [...] Diagnosis Comme nts SCANNED LAB RESULTS Routine 03/17/2020 12:01 AM CDT documented in this encounter Results SCANNED LAB RESULTS (03/17/2020 12:01 AM CDT) Specimen Performing Organization Address City/State/Zipcode Phone Number HIM documented in this encounter Insurance Payer Benefit Plan / Subscriber ID Effective Phone Address T ype Group Dates AETNA AETNA HMO [id number] 2015-Pres HMO ent COMMUNITY COMMUNITY xxxxxxxxx 2020-Prese P.O. BOX Medic aid HEALTH CHOICE - [place] nt [id number] 1 MANAGED MEDICAID [place], [place] MEDICAID [phone] documented as of this encounter Advance Directives Name Relationship Healthcare Agent Communication Relationship Christina Bueno Mother Primary healthcare agent
--- OUTSIDE RECORDS SUMMARY | 2020-05-06 15:09 | XMS REPORT | Summary of Care ---
:1999 Author Organization [facility] Address [address] [place] [address] Care Team Providers Name Role Phone Ion Ramirez Medicaid Hmo Marshall Hale MD Primary Care Provider Reason for Visit Reason Comments LAB Encounter Details Date Type Department Care Team Description 04/17/2020 Collection Supervisor Visit [facility] Juana Mcleod PA-C [address] [facility] Amarjit [address] [place] [address] Supervision of high risk in se cond trimester; Professional Office 2, Ad[facility] Lab 18 weeks gestation of Building Phlebotomy Lab Professional Office Building [address] [place] [address] DrRoselia, [address] [place] [address] Allergies Active Allergy Reactions Severity Noted Date Comments Amoxicillin-Pot Clavulanate Rash 10/14/2014 Diphenhydramine Hcl Hives 10/14/2014 Penicillins Hives Low 05/21/2017 Sulfa (Sulfonamide Antibiotics) Hives 5 Pt allergic to Bactrum documented as of this encounter (statuses as of 04/17/2020) Medications Medication Sig Dispensed Refills Start Date [...] as of this encounter (statuses as of 04/17/2020) Active Problems Problem Noted Date Supervision of high-risk 01/17/2020 Nausea and vomiting in 01/17/2020 History of seizure 01/17/2020 Overview: Reports as child last at age 1 Elevated blood pressure reading without diagnosis of h ypertension 01/17/2020 Obesity in 10/21/2019 Estimated Date of Delivery Comments Yes 09/17/2020 Based on Ultrasound documented as of this encounter (statuses as of 04/17/2020) Resolved Problems Problem Noted Date Resolved Date [...] examination 10/14/2014 09/19/2017 Overview: ICD10 Diagnosis Term General Lot Attendant Utility documented as of this encounter (statuses as of 04/17/2020) Immunizations Name Administration Dates Next Due TDAP 04/15/2014 documented as of this encounter Social History Tobacco Use Types Packs/Day Years Used Date Never Smoker Smokeless Tobacco: Never Used Alcohol Use Drinks/Week oz/Week Comments No Estimated Date of Delivery Comments Yes 09/17/2020 Based on Ultrasound Sex Assigned at Date Recorded Not on file COVID-19 Exposure Response Date Recorded In the last month, have you been in contact with No / Unsure 04/17/2020 8:39 AM CDT someone who was confirmed or suspected to have Coronavirus / COVID-19? documented as of this encounter Last Filed Vital Signs Not on filedocumented in this encounter Nursing Notes Nai Coles - 04/17/2020 9:30 AM CDT Venipuncture collection performed by clean technique on the right anticubitus. Total of 1 attempts were made. Slight pressure and a bandage/dressing were applied to the site(s). The patient experiencedno complications. The following specimens were processed according to instructions and sent to [facility] laboratories per lab order on 04/17/20: LT BLUE SST 1 RED LAV PPT DK GREEN (LiHep) DK GREEN (SodH) HENRY DK BLUE (K2) DK BLUE (S) ACD Blood Culture NIPT/NTD documented in this encounter Plan of Treatment Date Type Specialty Care Team Description 05/15/2020 Routine Visit Obstetrics & Hale, Esme Olivares MD Gynecology [address] [place] [address] DR. Flores [place] [address] [phone] 05/15/2020 Collection Supervisor Visit Obstetrics & Ultrasound, [facility] Gynecology Name Type Priority Associated Diagnoses Date/Ti me ALPHA LAB Routine Supervision of high risk 03/2020 9:46 AM CDT FETOPROTEIN-MATERNAL in second SER trimester 18 weeks gestation of Health Maintenance Due Date Last Done Comments WELL CARE VISIT: 12-01/10/2020 2019 YEARS (yearly) Depression Screening 04/24/2020 04/24/2019 INFLUENZA VACCINE (#1) 2020 HPV VACCINES (1 - 2-dose 10/21/2020 Postpon ed from series) 2010 (Refu sed) MENINGOCOCCAL B VACCINES (1 10/21/2020 [...] filedocumented in this encounter Visit Diagnoses Diagnosis Supervision of high risk in se cond trimester Unspecified high-risk 18 weeks gestation of state, incidental documented in this encounter Insurance Payer Benefit Plan / Subscriber ID Effective Phone Address T ype Group Dates AETNA AETNA HMO [id number] 2015-Pres HMO ent COMMUNITY COMMUNITY [id number] 2020-Prese P.O. BOX Medic aid HEALTH CHOICE - HEALTH CHOICE nt [id number] 1 MANAGED MEDICAID [place], [place] [phone] documented as of this encounter Advance Directives Name Relationship Healthcare Agent Communication Relationship Christina Laniejonathonclaire Mother Health Care Agent
--- OUTSIDE RECORDS SUMMARY | 2020-05-06 15:09 | XMS REPORT | Summary of Care ---
:2000 Author Organization [facility] Address [address] [place] [id number] Care Team Providers Name Role Phone Ion Ramirez Medicaid Hmo Marshall Hale MD Primary Care Provider Reason for Visit Reason Comments ROUTINE VISIT Encounter Details Date Type Department Care Team Description 04/17/2020 Routine [facility] Juana Mcleod, Supervision of high risk in second trimester (Primary Dx); Visit Healthcare- PA-C 18 weeks gestation of [address], [address] [id number] [phone] Allergies Active Allergy Reactions Severity Noted Date [...] examination 10/14/2014 09/19/2017 Overview: ICD10 Diagnosis Term Audio Director Utility documented as of this encounter (statuses [...] Sign Reading Time Taken Comments Blood Pressure 108/65 04/17/2020 8:39 AM CDT Pulse 66 04/17/2020 8:39 AM CDT Temperature 36.7 C (98 F) 04/17/2020 8:39 AM CDT Respiratory Rate 16 04/17/2020 8:39 AM CDT Oxygen Saturation - - Inhaled Oxygen Concentration - - Weight 69.9 kg (154 lb 3.2 oz) 04/17/2020 8:39 AM CDT Height 152.4 cm (5') 04/17/2020 8:39 AM CDT Body Mass Index 30.12 04/17/2020 8:39 AM CDT documented in this encounter Patient Instructions Patient InstructionsKavita Luciano MA - 04/17/2020 8:30 AM CDT Patient Education Comfort Tips During Talk with yourhealthcare provider before using pain-relieving medicine at any time during your . First trimester tips Nausea Get up slowly. Eat a few unsalted crackers before you get out of bed. Avoid smells that bother you. Eat smallbland low fat, light high-protein meals at frequent intervals. Sip on water, weaktea, or clear soft drinks, like elbert susy.Eat ice chips. Fatigue Take catnaps when you can. Get regular exercise. Accept help from others. Practice good sleep habits, like going to bed and getting up at the same time each day. Use your bed only for sleep and sex. Mood swings Talk about your feelings with others, including other mothers. Limit sugar, chocolate, and caffeine. Eat a healthy diet. Dont skip meals. Get regular exercise. Headaches Get fresh air and exercise. Relax and get enough rest. Check with your healthcare provider before taking any pain medicines. Second trimester tips Here are some suggestions to help you cope: To limit ankle swelling, sit with your feet raised or wear support hose. If you have pain in your groin and stomach(round ligament pain), avoid sudden twisting movements. For leg cramps, flexing your foot often brings immediate relief. You also may try massaging your calf in long, downward strokes, or stretching your legs before going to bed. Get enough exercise and wear shoes with flexible soles. Third trimester tips Reducing heartburn Eat small, light meals throughout the day rather than 3 large ones. Sleep with your upper body raised 6 inches. Dont lie down until 2 hours after you eat. Don't eat greasy, fried, or spicy foods. Avoid citrus fruits and juices. Treating constipation Eat foods high in fiber (whole-grain foods, fresh fruit and vegetables). Drink plenty of water. Get regular exercise. Discuss other medicines (like docusate and psyllium) with your healthcare provider. Taking care of your breasts Avoid using harsh soaps or alcohol, which can cause excessive dryness. Wear nursing bras. They provide more support than regular bras and can be used after ifyou breastfeed. Getting a good nights sleep Take a warm shower before bed. Sleep on a firm mattress. Lie on your side with 1 leg crossed over the other. Use pillows to support arms, legs, and belly. [employer] last reviewed this educational content on 06/11/201719998834-3585 [employer]. [address] [place] [address]. All rights reserved. This information is not intended as a substitute for professional medical care. Always follow your healthcare professional's instructions. Patient Education Adapting to : Second Trimester Keep up the healthy habits you started in your first trimester. You might be a little more tired than normal. So plan your day wisely. Look at the tips below and choose the ones that suit your lifestyle. If you have any questions, check with your healthcare provider. If you work If you can, adjust your work with your employer to fit your needs. Try these tips: If you stand for long periods, find ways to do some tasks while sitting. Also, try to stand with 1 foot resting on a low stool or ledge. Shift your weight from foot to foot often. Wear low-heeled shoes. If you sit, keep your knees level with your hips. Rest your feet on a firm surface. Sit tall withsupport for your low back. If you work long hours, ask about adjusting your schedule. Try taking shorter breaks more often. When you travel The second trimester may be the best time for any travel. Talk to your healthcare provider about anyspecial plans you may need to make. Always: Wear a seat belt. Fasten the lap part under your belly. Wear the shoulder part also. Take breaks often during long trips by car or plane. Move around to stretch your legs. Drink plenty of fluids on flights. The air in plane cabins is very dry. Avoid hot climates or high altitudes if you are not used to them. Avoid places where the food and water might make you sick. Make sure you are up-to-date on all immunizations, including the flu vaccine. This is especially important when traveling overseas. Taking time to relax Find time to rest and relax at work or at home: Take short time-outs daily. Do relaxation exercises. Breathe deeply during stressful times. Try not to take on too much. Plan tasks for times when you have the most energy. Take naps when you can. Or just sit and relax. After week 16, avoid lying on your back for more than a few minutes. Instead, lie on your side. Switch sides often. Continuing as lovers Unless your healthcare provider tells you otherwise, there is no reason to stop having sex now. Blood supply increases to the pelvic area in the second trimester. Because of this, sex might be more enjoyable. Try different positions and see whats best. Also, talk to your partner about any changes in desire. Spotting may happen after sex. Be sure to let your healthcare provider know if there is heavy bleeding. Keeping your environment safe You can still clean house and use scented products. Just take some simple precautions: Wear gloves when using cleaning fluids. Open windows to let in fresh air. Use a fan if you paint. Avoid secondhand smoke. Dont breathe fumes from nail romanian, hair spray, cleansers, or other chemicals. [employer] last reviewed this educational content on 09/11/201719997457-3764 [employer]. [address] [place] [address]. All rights reserved. This information is not intended as a substitute for professional medical care. Always follow your healthcare professional's instructions. Patient Education Comfort Tips During Talk with yourhealthcare provider before using pain-relieving medicine at any time during your . First trimester tips Nausea Get up slowly. Eat a few unsalted crackers before you get out of bed. Avoid smells that bother you. Eat smallbland low fat, light high-protein meals at frequent intervals. Sip on water, weaktea, or clear soft drinks, like elbert susy.Eat ice chips. Fatigue Take catnaps when you can. Get regular exercise. Accept help from others. Practice good sleep habits, like going to bed and getting up at the same time each day. Use your bed only for sleep and sex. Mood swings Talk about your feelings with others, including other mothers. Limit sugar, chocolate, and caffeine. Eat a healthy diet. Dont skip meals. Get regular exercise. Headaches Get fresh air and exercise. Relax and get enough rest. Check with your healthcare provider before taking any pain medicines. Second trimester tips Here are some suggestions to help you cope: To limit ankle swelling, sit with your feet raised or wear support hose. If you have pain in your groin and stomach(round ligament pain), avoid sudden twisting movements. For leg cramps, flexing your foot often brings immediate relief. You also may try massaging your calf in long, downward strokes, or stretching your legs before going to bed. Get enough exercise and wear shoes with flexible soles. Third trimester tips Reducing heartburn Eat small, light meals throughout the day rather than 3 large ones. Sleep with your upper body raised 6 inches. Dont lie down until 2 hours after you eat. Don't eat greasy, fried, or spicy foods. Avoid citrus fruits and juices. Treating constipation Eat foods high in fiber (whole-grain foods, fresh fruit and vegetables). Drink plenty of water. Get regular exercise. Discuss other medicines (like docusate and psyllium) with your healthcare provider. Taking care of your breasts Avoid using harsh soaps or alcohol, which can cause excessive dryness. Wear nursing bras. They provide more support than regular bras and can be used after ifyou breastfeed. Getting a good nights sleep Take a warm shower before bed. Sleep on a firm mattress. Lie on your side with 1 leg crossed over the other. Use pillows to support arms, legs, and belly. [employer] last reviewed this educational content on 06/11/201719990118-5673 [employer]. [address] [place] [address], [place] [address]. All rights reserved. This information is not intended as a substitute for professional medical care. Always follow your healthcare professional's instructions. Patient Education Adapting to : Second Trimester Keep up the healthy habits you started in your first trimester. You might be a little more tired than normal. So plan your day wisely. Look at the tips below and choose the ones that suit your lifestyle. If you have any questions, check with your healthcare provider. If you work If you can, adjust your work with your employer to fit your needs. Try these tips: If you stand for long periods, find ways to do some tasks while sitting. Also, try to stand with 1 foot resting on a low stool or ledge. Shift your weight from foot to foot often. Wear low-heeled shoes. If you sit, keep your knees level with your hips. Rest your feet on a firm surface. Sit tall withsupport for your low back. If you work long hours, ask about adjusting your schedule. Try taking shorter breaks more often. When you travel The second trimester may be the best time for any travel. Talk to your healthcare provider about anyspecial plans you may need to make. Always: Wear a seat belt. Fasten the lap part under your belly. Wear the shoulder part also. Take breaks often during long trips by car or plane. Move around to stretch your legs. Drink plenty of fluids on flights. The air in plane cabins is very dry. Avoid hot climates or high altitudes if you are not used to them. Avoid places where the food and water might make you sick. Make sure you are up-to-date on all immunizations, including the flu vaccine. This is especially important when traveling overseas. Taking time to relax Find time to rest and relax at work or at home: Take short time-outs daily. Do relaxation exercises. Breathe deeply during stressful times. Try not to take on too much. Plan tasks for times when you have the most energy. Take naps when you can. Or just sit and relax. After week 16, avoid lying on your back for more than a few minutes. Instead, lie on your side. Switch sides often. Continuing as lovers Unless your healthcare provider tells you otherwise, there is no reason to stop having sex now. Blood supply increases to the pelvic area in the second trimester. Because of this, sex might be more enjoyable. Try different positions and see whats best. Also, talk to your partner about any changes in desire. Spotting may happen after sex. Be sure to let your healthcare provider know if there is heavy bleeding. Keeping your environment safe You can still clean house and use scented products. Just take some simple precautions: Wear gloves when using cleaning fluids. Open windows to let in fresh air. Use a fan if you paint. Avoid secondhand smoke. Dont breathe fumes from nail romanian, hair spray, cleansers, or other chemicals. [employer] last reviewed this educational content on 09/11/201719993134-1076 [employer]. [address] [place] [address], [place] [address]. All rights reserved. This information is not intended as a substitute for professional medical care. Always follow your healthcare professional's instructions. Patient Education Alpha-Fetoprotein (Blood) Does this test have other names? msAFP screen What is this test? If you are , this test looks for a substance called alpha- fetoprotein (AFP) in your blood. AFP is a protein made by your fetus' liver. The protein passes through the placenta and into your blood. The test helps find out whether your fetus has higher than normal levels of AFP. Higher levels of AFP may mean that your fetus has an abnormality such as a neural tube defect. An example is spina bifida. Lower levels of AFP may mean that your fetus has Down syndrome. Neural tube defects are serious defects in which the spinal cord and brain don't properly develop. If a fetushas this defect, it will probably have an opening in its head, spine, or stomach wall that causes high levels of AFP to travel into the mother's blood. Down syndrome is an abnormality involving an extra chromosome (chromosome 21). Why do I need this test? If you are , your healthcare provider will offer this test to look at AFP levels in your blood and find out your fetus' health. You may have this test during weeks 15 to 20 of your . You may have this test to see whether your fetus has signs of Down syndrome or other defects. What other tests might I have along with this test? Your healthcare provider may also order blood tests to help make an accurate diagnosis. These tests include: hCG Unconjugated estriol Inhibin A You may have the following tests if your msAFP results are positive: Ultrasound Amniocentesis, which looks at the fluid around your fetus What do my test results mean? Many things may affect your lab test results. These include the method each lab uses to do the test.Even if your test results are different from the normal value, you may not have a problem. To learn what the results mean for you, talk with your healthcare provider. Results are given in nanograms per milliliter (ng/mL). Here is the normal range: For adults: less than 40 ng/mL For a child younger than 1 year: less than 30 ng/mL AFP levels typically rise until around the 12th week of . Then the levels drop consistentlyuntil . Other causes of increased levels of AFP may include: Primary hepatocellular carcinoma, a type of liver cancer Rapidly developing hepatitis, or liver inflammation, which may cause AFP levels to rise beyond 1,000 ng/mL Lower levels of hepatitis, which may cause AFP levels of 100 to 400 ng/mL Rare occurrences of cancer that has spread from your gastrointestinal tract Cholangiocarcinoma, a type of cancer that can cause AFP levels greater than 400 ng/mL If your fetus has Down syndrome, substances like AFP and unconjugated estriol will likely be low. But hCG and inhibin A levels will probably be high. If you have a positive test result, it does not mean that your fetus definitely has a defect. Most mothers who test positive are actually carrying a healthy fetus. How is this test done? The test requires a blood sample, which is drawn through a needle from a vein in your arm. Does this test pose any risks? Taking a blood sample with a needle carries risks that include bleeding, infection, bruising, or feeling dizzy. When the needle pricks your arm, you may feel a slight stinging sensation or pain. Afterward, the site may be slightly sore. What might affect my test results? If you have recently been given a screening test for embryonic teratocarcinoma or hepatoblastoma, a liver tumor, your AFP levels may be higher than normal. How do I get ready for this test? You don't need to prepare for this test. But be sure your healthcare provider knows about all medicines, herbs, vitamins, and supplements you are taking. This includes medicines that don't need a prescription and any illicit drugs you may use. [employer] last reviewed this educational content on 12/10/201819994009-7762 [employer]. [address] [place] [address], [place] [address]. All rights reserved. This information is not intended as a substitute for professional medical care. Always follow your healthcare professional's instructions. documented in this encounter Progress Notes Juana Mcleod PA-C - 04/17/2020 8:30 AM CDT Chief complaint: Chief Complaint Patient presents with ROUTINE VISIT HPI Gem Hackett is a 20 year old female @ 18w1d coming in for PN visit.. She has nocomplaints and reports is doing well. Patient denies any abnormal/pelvic pain, discharge, dysuria, hematuria, abnormal bleeding. Histories OB History Para Term AB Living [...] Financial resource strain: Not on file Food insecurity Worry: Not on file Inability: Not on file Transportation needs Medical: Not on file Non-medical: Not on file Tobacco Use Smoking status: Never Smoker Smokeless tobacco: Never Used Substance and Sexual Activity Alcohol use: No Drug use: No Sexual activity: Yes Partners: Male control/protection: None Comment: last sexual intercourse: 01/06/2020 Lifestyle Physical activity Days per week: Not on file Minutes per session: Not on file Stress: Not on file Relationships Social connections Talks on phone: Not on file Gets together: Not on file Attends faith service: Not on file Active member of club or organization: Not on file Attends meetings of clubs or organizations: Not on file Relationship status: Not on file Intimate partner violence Fear of current or ex partner: Not [...] None Comment: last sexual intercourse: 01/06/2020 Labs none Radiology none Allergies Gem is allergic to augmentin [amoxicillin-pot clavulanate]; benadryl [diphenhydramine hcl]; sulfa (sulfonamide antibiotics); and penicillins. Medications Gem has a current medication list which includes the following prescription(s): acetaminophen, magnesium oxide, miscellaneous medical supply, multivitamin, and promethazine. Review of Systems Constitutional: Negative for appetite change, fatigue and fever. HENT: Negative for rhinorrhea and sore throat. Eyes: Negative for pain and itching. Respiratory: Negative for cough, chest tightness and shortness of breath. Breasts: Negative for discharge, mass and pain. Cardiovascular: Negative for chest pain, palpitations and leg swelling. Gastrointestinal: Negative for abdominal pain, constipation, diarrhea and nausea. Genitourinary: Negative for bladder incontinence, dysuria, vaginal discharge, difficulty urinating, vaginal pain and pelvic pain. Musculoskeletal: Negative for gait problem and myalgias. Skin: Negative for rash. Neurological: Negative for dizziness and headaches. Psychiatric/Behavioral: Negative for suicidal ideas. The patient is not nervous/anxious. Endocrine: Negative for hair loss. LMP 12/19/2019 (Exact Date) Pregravid BMI: 31.83 Physical Exam Vitals reviewed. Constitutional: She is oriented to person, place, and time. She appears well- developed and well-nourished. Neck: No mass. No thyromegaly palpated. No neck adenopathy. Cardiovascular: Regular rate and rhythm. Pulmonary/Chest: Normal inspiratory effort. Abdominal: Abdomen is soft. No tenderness present. No hernia palpated or inspected. Neuro/Psychiatric: She has a normal mood and affect. She is oriented to person, place, and time. Skin: Skin normal. Lymphadenopathy: No neck adenopathy present. No axillary adenopathy present. No inguinal adenopathy present. Assessment/Plan SEE OB SUMMARY Return to clinic in 4 weeks. Discussed treatment options. Reviewed patient instructions and provided printed copy. Activity restrictions: As tolerated This visit did not involve counseling and coordination that comprised more than 50% of the visit time. Juana Mcleod PA-C 04/17/2020 8:39 AM documented in this encounter Miscellaneous Notes OB Summary Note - Juana Mcleod PA-C - 04/17/2020 8:30 AM CDTAge: 20 year old GA: 18w1d Doing well, no complaints. MONCADA- Patient on magnesium oxide and reports it is helping. Msafp ordered today. FOLLOW-UP in 4 wks for PN visit. Anatomy scan scheduled for 05/15/2020. documented in this encounter Plan of Treatment Date Type Specialty Care Team Description 04/17/2020 Push Button Switch Assembler Visit Phlebotomy Juana Mcleod PA-C [address] [place] [phone], [facility] Lab 05/15/2020 Routine Visit Obstetrics & Hale, Esme Olivares MD Gynecology [address] [place] [address] [phone] 05/15/2020 Push Button Switch Assembler Visit Obstetrics & Ultrasound, [facility] Gynecology Name Type Priority Associated Diagnoses Order S chedule ALPHA LAB Routine Supervision of high risk Exp ected: 04/17/2020, FETOPROTEIN-MATERNAL in second Expires: 05/17/2020 SER trimester 18 weeks gestation of Health [...] Diagnosis Comme nts POCT URINALYSIS W/O Routine 04/17/2020 8:38 Supervision of [facility] Results for this SPECIFIC GRAVITY AM CDT risk in proced ure are in second trimester the results 18 weeks gestation section. of documented in this encounter Results POCT URINALYSIS W/O SPECIFIC GRAVITY (04/17/2020 8:38 AM CDT) Pathologist Sig nature POCT PH U n/a 5 - 8 mg/dl POCT U LEUK EST n/a Negative - Negative POCT U NIT n/a Negative - Negative POCT U PROT trace Negative - Negative POCT U GLU 1+ Negative - Negative POCT U KETONE n/a Negative - Negative POCT U BLD n/a Negative - Negative Specimen Urine - URINE, CLEAN CATCH documented in this encounter Visit Diagnoses Diagnosis Supervision of high risk in se cond trimester - Primary Unspecified high-risk 18 weeks gestation of state, incidental documented in this encounter Insurance Payer Benefit Plan / Subscriber ID Effective Phone Address T ype Group Dates AETNA AETNA HMO [id number] 2015-Pres HMO ent [employer] [id number] 2020-Zoey [address] Medic aid HEALTH CHOICE - [place] [id number] 1 MANAGED MEDICAID [place], [place] [id number] documented as of this encounter Advance Directives Name Relationship Healthcare Agent Communication Relationship Christina Ramirezanai Mother Health Care Agent
--- OUTSIDE RECORDS SUMMARY | 2020-05-06 15:09 | XMS REPORT | Summary of Care ---
:2000 Author Organization [facility] Address [address] [place] [address] Care Team Providers Name Role Phone Ion Ramirez Medicaid Hmo Marshall Hale MD Primary Care Provider Reason for Visit Reason Comments Results Encounter Details Date Type Department Care Team Description 03/25/2020 Telephone [facility] Women's Esme Hale MD Results Healthcare- [address] DR[address]elia [address] [place] [address] [address] [place] [address] [place] [address] [phone] Allergies Active Allergy Reactions Severity Noted Date Comments Amoxicillin-Pot Clavulanate Rash 10/14/2014 Diphenhydramine Hcl Hives 10/14/2014 Penicillins Hives Low 05/21/2017 Sulfa (Sulfonamide Antibiotics) Hives 5 Pt allergic to Bactrum documented as of this encounter (statuses as of 03/25/2020) Medications Medication Sig Dispensed Refills Start Date [...] as of this encounter (statuses as of 03/25/2020) Active Problems Problem Noted Date Supervision of high-risk 01/17/2020 Nausea and vomiting in 01/17/2020 History of seizure 01/17/2020 Overview: Reports as child last at age 1 Elevated blood pressure reading without diagnosis of h ypertension 01/17/2020 Obesity in 10/21/2019 Estimated Date of Delivery Comments Yes 09/17/2020 Based on Ultrasound documented as of this encounter (statuses as of 03/25/2020) Resolved Problems Problem Noted Date Resolved Date [...] examination 10/14/2014 09/19/2017 Overview: ICD10 Diagnosis Term Air Box Tester Utility documented as of this encounter (statuses as of 03/25/2020) Immunizations Name Administration Dates Next Due TDAP [...] Obstetrics & Juana Mcleod, Gynecology BREANA [address] [phone] 04/17/2020 Retort Cooler Visit Phlebotomy 2, Adc Lab Health Maintenance [...] T ype Group Dates AETNA AETNA HMO [id number] 2015-Pres HMO ent [employer] xxxxxxxxx 2020-Prese [address]. BOX Medic aid HEALTH CHOICE - HEALTH [place] [id number] 1 MANAGED MEDICAID [place], [place] [id number] documented as of this encounter Advance Directives Name Relationship Healthcare Agent Communication Relationship Christina Bueno Mother Primary healthcare agent
--- OUTSIDE RECORDS SUMMARY | 2020-05-06 15:10 | XMS REPORT | Continuity of Care Document ---
:2000 Author Organization [facility] t Address [address] [place] [address] Care Team Providers Name Role Phone 2, Lab Attending Clinician Unavailable Harsha TOUSSAINT Attending Clinician Marshall Hale MD Attending Clinician Bonnie Patricia Attending Clinician [facility] Attending Clinician Unavailable 5, Mfm Usg Room Attending Clinician Unavailable Doctor Unassigned, Name Attending Clinician Unavailable Problems This patient has no known problems. Allergies, Adverse Reactions, Alerts This patient has no known allergies or adverse reactions. Medications This patient has no known medications. Procedures This patient has no known procedures. Encounters Start End Encounter Admission Attending Care Care Encounter Source Date/Time Date/Time Type Type Clinicians Facility Department ID 2020-04-17 2020-04-17 Image Archivist 2Steve Lab [facility] [id number] 09:43:10 09:58:10 Visit Yamileth [id number] [place] 4.2.7.2.686 Profamy [id number] [facility] 2020-04-17 2020-04-17 Routine Harsha [facility] [id number] 08:24:04 09:05:20 Juana Carson [id number] Visit Ellis [id number] Professio [phone] [facility] 2020-03-25 2020-03-25 Telephone Esme Hale [facility] 1.2.840.114 [id number] 00:00:00 00:00:00 Marshall Carson [id number] [place] 4.2.7.2.686 Kirk [phone] [address] 2020-03-18 2020-03-18 Abstract Akinsipe, [facility] 1.2.840.114 [id number] 00:00:00 00:00:00 Fior Nicole SWIM COACH [id number] [facility] 4.2.7.2.686 MATERNAL [phone] & CHILD [facility] 2020-03-17 2020-03-17 Image Archivist [facility] 1.2.840.114 [id number] 14:16:37 14:31:37 Visit Y HEALTH [id number] [facility] 4.2.7.2.686 [id number] 2020-03-16 2020-03-17 Routine Hale, Esme [facility] [id number] 10:58:03 14:17:50 [place] [id number] Visit [place] 4.2.7.2.686 Kirk [id number] [address] 2020-03-17 2020-03-17 Image Archivist 5, [facility] 1.2.840.11 [id number] 12:50:25 13:35:25 Visit Us Room Y HEALTH [id number] [facility] 4.2.7.2.686 [id number] 104 2020-03-17 2020-03-17 Orders Doctor JEROD 1.2.840.114 [id number] 00:00:00 00:00:00 Only Unassigned, AMY 350.1.13.10 [place] [facility] 4.2.7.2.686 [id number] 009 2020-02-26 2020-02-26 Orders Doctor JEROD 1.2.840.114 [id number] 00:00:00 00:00:00 Only Unassigned, AMY 350.1.13.10 [place] [facility] 4.2.7.2.686 [id number] [id number] Results This patient has no known results.
--- NOTE | 2020-05-06 16:22 | ER ---
Nurse's Notes [facility] Name: Gem Hackett Age: 20 yrs Sex: Female : 2000 Arrival Date: 05/06/2020 Time: 15:07 Bed 15 Private MD: Diagnosis: Allergy, unspecified Presentation: 05/06 15:14 Chief complaint: Patient states: Reports 20 weeks ; I use to be allergic to jl7 peanuts but grew out of it by the time I was like 11. I ate some walnuts last night, not sure if that's what caused it but I noticed a rash on my back, chest and neck that started like an hour ago. Reports anaphylactic reaction to Benadryl so her mom told her to come here. Coronavirus screen: Client denies travel out of the [place] in the last 14 days. At this time, the client does not indicate any symptoms associated with coronavirus-19. Ebola Screen: No symptoms or risks identified at this time. Onset: The symptoms/episode began/occurred 1 hour(s) ago. Anaphylaxis evaluation, no signs or symptoms of anaphylaxis were noted. Initial Sepsis Screen: Does the patient meet any 2 criteria? No. Patient's initial sepsis screen is negative. Does the patient have a suspected source of infection? No. Patient's initial sepsis screen is negative. Risk Assessment: Do you want to hurt yourself or someone else? Patient reports no desire to harm self or others. Onset of symptoms was May 06, 2020 at 14:30. Care prior to arrival: None. Transition of care: patient was not received from another setting of care. 15:14 Method Of Arrival: Ambulatory [facility] 15:14 Acuity: NUSRAT 4 jl7 Triage Assessment: 15:21 General: Appears in no apparent distress. uncomfortable, Behavior is calm, cooperative, jl7 appropriate for age. Pain: Denies pain. Neuro: Level of Consciousness is awake, alert, obeys commands, Oriented to person, place, time, situation. Cardiovascular: Patient's skin is warm and dry. Respiratory: Airway is patent Respiratory effort is even, unlabored, Respiratory pattern is regular, symmetrical. 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 - Social history:: Smoking status: Patient denies any tobacco usage or history of. Screenin:47 Abuse screen: Denies threats or abuse. Denies injuries from another. Nutritional ca1 screening: No deficits noted. Tuberculosis screening: No symptoms or risk factors identified. Fall Risk None identified. Assessment: 16:47 General: Appears in no apparent distress. comfortable, Behavior is calm, cooperative, ca1 appropriate for age. Pain: Denies pain. Respiratory: Airway is patent Respiratory effort is even, unlabored, Respiratory pattern is regular, symmetrical, Breath sounds are clear bilaterally. Derm: Skin is intact, is healthy with good turgor, Skin is pink, warm \T\ dry. Rash noted that is red, urticaria, on thoracic area. Musculoskeletal: Circulation, motion, and sensation intact. Capillary refill < 3 seconds. Vital Signs: 15:14 BP 121 / 65; Pulse 89; Resp 17; Temp 98.1; Pulse Ox 99% ; Weight 68.04 kg; Height 5 ft. jl7 0 in. (152.40 cm); Pain 0/10; 15:14 Body Mass Index 29.29 (68.04 kg, 152.40 cm) jl7 ED Course: 15:07 Patient arrived in ED. ag5 15:19 Triage completed. jl7 15:21 Arm band placed on right wrist. jl7 15:27 Kaylin Brice FNP-C is PHCP. snw 15:27 Issac Camp MD is Attending Physician. snw 15:59 Yolis Perrin, JAMIA is Primary Nurse. ca1 16:47 Patient has correct armband on for positive identification. ca1 16:47 No provider procedures requiring assistance completed. Patient did not have IV access ca1 during this emergency room visit. Administered Medications: 16:46 Drug: ZyrTEC - Cetirizine 10 mg Route: PO; ca1 16:46 Follow up: Response: Medication administered at discharge. ca1 Outcome: 16:22 Discharge ordered by . snw 16:47 Discharged to home ambulatory. ca1 16:47 Condition: stable 16:47 Discharge instructions given to patient, Instructed on discharge instructions, follow up and referral plans. medication usage, Demonstrated understanding of instructions, follow-up care, medications, Prescriptions given X 2. 16:48 Patient left the ED. ca1 Signatures: Kaylin Brice, PRE BILLING CLINICIAN-C PRE BILLING CLINICIAN-Csnw Aldo Boland RN RN jl7 Yolis Perrin RN RN ca1 Ricco Burks ag5
--- NOTE | 2020-05-06 16:22 | EDPHYS ---
Physician Documentation [facility] Name: Gem Hackett Age: 20 yrs Sex: Female : 2000 Arrival Date: 05/06/2020 Time: 15:07 Bed 15 Private MD: ED Physician Issac Camp HPI: 05/06 16:36 This 20 yrs old Other Female presents to ER via Ambulatory with complaints of Rash, snw Allergic Reaction. 16:36 The patient's rash thought to be caused by allergies. The rash is located on the back, snw chest and neck. The rash can be described as macular, papular, patchy. Onset: The symptoms/episode began/occurred suddenly, today. Associated signs and symptoms: Pertinent positives: itching. Severity of symptoms: At their worst the symptoms were moderate in the emergency department the symptoms have improved moderately. Treatment given at home: zyrtec, patient allergic to benadryl but usually takes zyrtec daily. It is unknown whether or not the patient has had similar symptoms in the past. It is unknown whether or not the patient has recently seen a physician. 20wk IUP, pt states since she is allergic to benadryl, she just wanted something to take if her rash worsened.. 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 - Social history:: Smoking status: Patient denies any tobacco usage or history of. ROS: 16:35 Constitutional: Negative for fever, chills, and weight loss, Eyes: Negative for injury, snw pain, redness, and discharge, ENT: Negative for injury, pain, and discharge, Neck: Negative for injury, pain, and swelling, Cardiovascular: Negative for chest pain, palpitations, and edema, Respiratory: Negative for shortness of breath, cough, wheezing, and pleuritic chest pain, Abdomen/GI: Negative for abdominal pain, nausea, vomiting, diarrhea, and constipation, Back: Negative for injury and pain, : Negative for injury, bleeding, discharge, and swelling, MS/Extremity: Negative for injury and deformity, Neuro: Negative for headache, weakness, numbness, tingling, and seizure, Psych: Negative for depression, anxiety, suicide ideation, homicidal ideation, and hallucinations. 16:35 Skin: Positive for rash. Exam: 16:34 Constitutional: This is a well developed, well nourished patient who is awake, alert, snw and in no acute distress. Head/Face: Normocephalic, atraumatic. Eyes: Pupils equal round and reactive to light, extra-ocular motions intact. Lids and lashes normal. Conjunctiva and sclera are non-icteric and not injected. Cornea within normal limits. Periorbital areas with no swelling, redness, or edema. ENT: Nares patent. No nasal discharge, no septal abnormalities noted. Tympanic membranes are normal and external auditory canals are clear. Oropharynx with no redness, swelling, or masses, exudates, or evidence of obstruction, uvula midline. Mucous membranes moist. Neck: Trachea midline, no thyromegaly or masses palpated, and no cervical lymphadenopathy. Supple, full range of motion without nuchal rigidity, or vertebral point tenderness. No Meningismus. Chest/axilla: Normal chest wall appearance and motion. Nontender with no deformity. No lesions are appreciated. Cardiovascular: Regular rate and rhythm with a normal S1 and S2. No gallops, murmurs, or rubs. Normal PMI, no JVD. No pulse deficits. Respiratory: Lungs have equal breath sounds bilaterally, clear to auscultation and percussion. No rales, rhonchi or wheezes noted. No increased work of breathing, no retractions or nasal flaring. Abdomen/GI: Soft, non-tender, with normal bowel sounds. No distension or tympany. No guarding or rebound. No evidence of tenderness throughout. Back: No spinal tenderness. No costovertebral tenderness. Full range of motion. MS/ Extremity: Pulses equal, no cyanosis. Neurovascular intact. Full, normal range of motion. Neuro: Awake and alert, GCS 15, oriented to person, place, time, and situation. Cranial nerves II-XII grossly intact. Motor strength 5/5 in all extremities. Sensory grossly intact. Cerebellar exam normal. Normal gait. Psych: Awake, alert, with orientation to person, place and time. Behavior, mood, and affect are within normal limits. 16:34 Skin: Appearance: normal except for affected area, rash a mild rash is noted, rash can be described as macular, nonspecific, papular, on the thoracic area, left mid back and right mid back. Vital Signs: 15:14 BP 121 / 65; Pulse 89; Resp 17; Temp 98.1; Pulse Ox 99% ; Weight 68.04 kg; Height 5 ft. jl7 0 in. (152.40 cm); Pain 0/10; 15:14 Body Mass Index 29.29 (68.04 kg, 152.40 cm) jl7 MDM: 16:06 Patient medically screened. snw 16:35 Data reviewed: vital signs, nurses notes. Data interpreted: Pulse oximetry: on room air snw is 99 %. Interpretation: normal. Counseling: I had a detailed discussion with the patient and/or guardian regarding: the historical points, exam findings, and any diagnostic results supporting the discharge/admit diagnosis, the need for outpatient follow up, to return to the emergency department if symptoms worsen or persist or if there are any questions or concerns that arise at home. Special discussion: Based on the history and exam findings, there is no indication for further emergent testing or inpatient evaluation. I discussed with the patient/guardian the need to see the hog sticker for further evaluation of the symptoms. I discussed with the patient/guardian the need to see the OB Gyne specialist for further evaluation of the symptoms. I discussed with the patient/guardian the need to see the primary care provider for further evaluation of the symptoms. Administered Medications: 16:46 Drug: ZyrTEC - Cetirizine 10 mg Route: PO; ca1 16:46 Follow up: Response: Medication administered at discharge. ca1 Disposition: 17:10 Co-signature as Attending Physician, Issac Camp MD. rn Disposition: 05/06/20 16:22 Discharged to Home. Impression: Allergy, unspecified. - Condition is Stable. - Discharge Instructions: Allergies, Adult, Skin Conditions During . - Prescriptions for Zyrtec 10 mg Oral Tablet - take 1 tablet by ORAL route once daily As needed; 20 tablet. Prednisone 20 mg Oral Tablet - take 2 tablet by ORAL route once daily for 5 days; 10 tablet. - Medication Reconciliation Form, Thank You Letter, Antibiotic Education, Prescription Opioid Use form. - Follow up: Emergency Department; When: As needed; Reason: Worsening of condition. Follow up: Private Physician; When: 2 - 3 days; Reason: Recheck today's complaints, Continuance of care, Re-evaluation by your physician. Signatures: Kaylin Brice, ANY COMMODITY SALES DELIVERER-C ANY COMMODITY SALES DELIVERER-Csnw Issac Camp MD MD rn Leal, Jahala, RN RN jl7 Yolis Perrin RN RN ca1 Corrections: (The following items were deleted from the chart) 16:48 16:22 05/06/2020 16:22 Discharged to Home. Impression: Allergy, unspecified. Condition ca1 is Stable. Forms are Medication Reconciliation Form, Thank You Letter, Antibiotic Education, Prescription Opioid Use. Follow up: Emergency Department; When: As needed; Reason: Worsening of condition. Follow up: Private Physician; When: 2 - 3 days; Reason: Recheck today's complaints, Continuance of care, Re-evaluation by your physician. snw
[2020-05-06] MEDS ORDERED: CETIRIZINE HCL 5 MG TABLET ONE (16:55)
[2020-05-11 12:46] VITALS: BP 121/65; TEMP 98.1; O2SAT 99
== END 2020-05-06 16:48 | disposition home or self-care (01) ==
LOC: ER 15:05
DX: O99.712 Diseases of the skin and subcutaneous tissue complicating pregnancy, second trimester (principal); R21 Rash and other nonspecific skin eruption; Z3A.20 20 weeks gestation of pregnancy; Z88.0 Allergy status to penicillin; Z88.2 Allergy status to sulfonamides; Z88.8 Allergy status to other drugs, medicaments and biological substances
CPT/HCPCS: 99283

== ENCOUNTER 2020-09-11 17:33 | Inpatient (IN) | payer OTHER ==
--- OUTSIDE RECORDS SUMMARY | 2020-09-11 17:36 | XMS REPORT | Continuity of Care Document ---
:2000 Author Organization [facility] t Address [address]. [address] [place] [address] Care Team Providers Name Role Phone Doctor Unassigned, Name Attending Clinician Unavailable Marshall Hale MD Attending Clinician Ultrasound, Mfm Attending Clinician Unavailable 2, Lab Attending Clinician Unavailable Harsha TOUSSAINT Attending Clinician Akinsipe ROSA C Attending Clinician [facility] Attending Clinician Unavailable 5, Mfm Usg Room Attending Clinician Unavailable Marshall Hale MD Admitting Clinician Problems This patient has no known problems. Allergies, Adverse Reactions, Alerts This patient has no known allergies or adverse reactions. Medications This patient has no known medications. Procedures This patient has no known procedures. Encounters Start End Encounter Admission Attending Care Care Encounter Source Date/Time Date/Time Type Type Clinicians Facility Department ID 2020-06-19 2020-06-19 Orders Doctor NEWSOME 1.2.840.114 [id number] 00:00:00 00:00:00 Only UnassignedAMY 350.1.13.10 [place] [id number] [id number] 009 2020-05-20 2020-05-20 Junie Mccray.2.840.114 [id number] 00:00:00 00:00:00 Only UnassignedAMY 350.1.13.10 [place] [id number] [id number] [id number] 2020-05-18 2020-05-18 Hospital Esme Hale [facility] 1.2.840.114 [id number] 18:42:00 19:44:00 Encounter Cam [place] 350.1.13.10 [place] 4.2.7.2.686 [place] [id number] 2020-05-18 2020-05-18 Orders Doctor JEROD 1.2.840.114 [id number] 00:00:00 00:00:00 Only Unassigned, AMY 350.1.13.10 [place] [facility] 4.2.7.2.686 [id number] [id number] 2020-05-15 2020-05-15 Knot Tying Operator Ultrasound, [facility] 1.2.840.114 [id number] 13:54:57 14:54:57 Visit Adc Mfm [place] 350.1.13.10 [place] 4.2.7.2.686 Professio [id number] [address] 2020-05-15 2020-05-15 Routine Esme Hale [facility] 1.2.110.145 [id number] 13:06:40 13:55:03 Cam [place] 350.1.13.10 Visit [place] 4.2.7.2.686 Professio [id number] [address] 2020-04-17 2020-04-17 Knot Tying Operator 2, Adc [facility] [place] 1.2.840.114 [id number] 09:43:10 09:58:10 Visit [place] 350.1.13.10 [place] 4.2.7.2.686 Professio [id number] [address] 2020-04-17 2020-04-17 Routine Vanaphan, [facility] [id number] 08:24:04 09:05:20 Juana [place] 350.1.13.10 Visit [place] 4.2.7.2.686 Professio [id number] [address] 2020-03-25 2020-03-25 Telephone Esme Hale [facility] 1.2.840.114 [id number] 00:00:00 00:00:00 Cam [place] 350.1.13.10 [place] 4.2.7.2.686 Professio [id number] [facility] 134 [facility] 2020-03-18 2020-03-18 Abstract Jason, [facility] 1.2.840.114 [id number] 00:00:00 00:00:00 Fior Nicole SCORING MACHINE OPERATOR 350.1.13.10 [facility] 4.2.7.2.686 MATERNAL [id number] & CHILD [address] [facility] 2020-03-17 2020-03-17 Knot Tying Operator [facility] 1.2.840.114 [id number] 14:16:37 14:31:37 Visit Y HEALTH 350.1.13.10 CLINICS 4.2.7.2.686 [id number] 2020-03-16 2020-03-17 Routine Geoffrey Esme [facility] [id number] 10:58:03 14:17:50 Cam [place] 350.1.13.10 Visit [place] 4.2.7.2.686 Kirk [id number] [address] 2020-03-17 2020-03-17 Knot Tying Operator 5, [facility] 1.2.840.11 [id number] 12:50:25 13:35:25 Visit [facility] Room Y HEALTH 350.1.13.10 CLINICS 4.2.7.2.686 [id number] 2020-03-17 2020-03-17 Orders Doctor JEROD 1.2.840.114 [id number] 00:00:00 00:00:00 Only Unassigned, AMY 350.1.13.10 [place] [facility] 4.2.7.2.686 [id number] [id number] 2020-02-26 2020-02-26 Orders Doctor JEROD 1.2.840.114 [id number] 00:00:00 00:00:00 Only Unassigned, AMY 350.1.13.10 [place] [facility] 4.2.7.2.686 [id number] [id number] Results This patient has no known results.
[2020-09-11 18:09] VITALS: BMI 37.8
[2020-09-11] MEDS ORDERED: Ringers Lactate 1,000 ML IV PRN (18:17)
[2020-09-11] MEDS ORDERED: ROPIVACAINE HCL/PF 0.2% 10 ML VIAL IV ONE ×2 (18:51→19:19)
[2020-09-11] MEDS ORDERED: FENTANYL CITR 100 MCG/2 ML IV ONE ×2 (18:52→19:18)
[2020-09-11] MEDS ORDERED: 0.2% ROPIVACAINE (200 MG/100 ML) BAG EP ONE (18:52)
[2020-09-11 18:54] LABS: Absolute Lymphocytes (CBC) 1.1 K/uL (0.7-4.9); Basophils % 0.3 % (0-1.3); Hematocrit 35.9 % (36.0-45.0); Lymphocytes % 7.6 % (15.3-44.8); MPV 11.5 fL (7.6-11.3); RBC Red Blood Cell Count 3.83 M/uL (3.86-4.86)
[2020-09-11 18:56] LABS: Urine Appearance CLOUDY; Urine Bilirubin NEGATIVE (NEG); Urine Blood 1+ (NEG); Urine Color DK YELLOW; Urine Glucose NEGATIVE (NEG); Urine Protein 3+ (NEG); Urine Specific Gravity >=1.030 (1.005-1.030); Urine Urobilinogen 0.2 mg/dL (0.2-1.0)
[2020-09-11] MEDS ORDERED: OXYTOCIN/LR 20 UNIT/1,000 ML BAG IV SCH (19:00)
[2020-09-11] MEDS ORDERED: Ringers Lactate 1,000 ML IV SCH (19:00)
--- NOTE | 2020-09-11 19:03 | P.OBGYNHP ---
Certification for Inpatient Patient admitted to: Inpatient With expected LOS: >2 Midnights Patient will require the following post-hospital care: None Practitioner: I am a practitioner with admitting privileges, knowledge of patient current condition, hospital course, and medical plan of care. Services: Services provided to patient in accordance with Admission requirements found in Title 42 Section 412.3 of the Code of Federal Regulations Patient History Date of Service: 09/11/20 Primary Care Provider: Reid Reason for admission: contractions every 2-3 minutes History of Present Illness: 20 y/o G1 at 39w1d ( ALLY 09/17/20 ) who was seen earlier today and sent home for false labor who now returns with stronger and more frequent contractions every 2-3 minutes. She denies ROM, fever, vaginal bleeding or changes in movement . Her course has been uncomplicated . She did require the 3hr OGTT because of failed 1hr testing. A Three hour testing was normal. She received the TdaP and Influenza vaccinations. She was tested for COVID last week and it was negative. No known exposure, no cough or fever. Allergies amoxicillin trihydrate [From Augmentin] Allergy (Intermediate, Verified 12/18/11 21:21) Hives/Rash diphenhydramine HCl [From Benadryl] Allergy (Intermediate, Verified 12/18/11 21:22) Hives/Rash Sulfa (Sulfonamide Antibiotics) [Sulfa(Sulfonamide Antibiotics)] Allergy (Intermediate, Verified 12/18/11 21:22) Hives/Rash Home Medications: Promethazine HCl 50 mg PO Q4H PRN #15 tablet 08/28/20 Cetirizine HCl [Zyrtec] 10 mg PO 09/11/20 Iron 18 mg PO 09/11/20 Vitamin [ VITAMIN] 1 tab PO 09/11/20 - Past Medical/Surgical History Has patient received pneumonia vaccine in the past: No Diabetic: No Past Medical History: Reviewed- Non-Contributory -: Surgeries: TOnsillectomy Meds: Zyrtec, PNV Illnesses: none -: Tonselectomy-at age 16 - Social History Smoking Status: Never smoker Alcohol use: No CD- Drugs: No Caffeine use: Yes Place of Residence: Home Review of Systems General: Unremarkable Respiratory: Unremarkable Cardiovascular: Unremarkable Gastrointestinal: Unremarkable Genitourinary: Unremarkable Neurological: Unremarkable Other: Intermittent pedal edema Physical Examination - Vital Signs Temperature: 36.8 C Blood Pressure: 132/69 Pulse: 79 Respirations: 20 - General General: Alert, Oriented x3, Mild distress Neck: No Thyromegaly Respiratory: Clear to auscultation bilaterally, Normal air movement Cardiovascular: Normal pulses, Regular rate/rhythm, No murmurs Gastrointestinal: Normal bowel sounds, Soft and benign, No tenderness, No massess, No rebound Integumentary: Other (Tatooes) - Female Pelvic Cervix: Dilation (4cm ), Effacement (90%), station (-1) - Obstetrics heart rate tracing: Category 1 Contractions: Frequency (every 2-3 minutes) Amniotic membrane: AROM (moderate MSAF) Assessment and Plan - Problems (Diagnosis) (1) 39 weeks gestation of Current Visit: Yes Status: Acute (2) Active labor at term Current Visit: Yes Status: Acute (3) Meconium in amniotic fluid Current Visit: Yes Status: Acute - Plan Assessment: 1. 39w1d IUP 2. Active labor 3. MSAF Plan: Admit , expect Desires epidural anesthesia, notify Pedi at delivery concerning MSAF - Advance Directives Does patient have a Living Will: No Does patient have a Durable POA for Healthcare: No - Code Status/Comfort Care Code Status: Full Code Physician Review: Patient Assessed, Agree with Above Assessment and Plan Critical Care: No
[2020-09-11] MEDS ORDERED: ROPIVACAINE HCL 0.2% 20ML AMP IV ONE (19:18)
[2020-09-11] MEDS ORDERED: ROPIVACAINE HCL 0 ML ONE (19:37)
[2020-09-11 19:39] LABS: Urine RBC <5 /HPF (NONE SEEN)
[2020-09-11 19:40] LABS: Urine Bacteria <20 /HPF (<20)
[2020-09-11] MEDS ORDERED: CARBOPROST TROME 250 MCG/ML IM ONE (22:08)
[2020-09-11] MEDS ORDERED: METHYLERGONOVINE 0.2MG/ML AMP IM ONE (22:08)
[2020-09-11] MEDS ORDERED: LIDOCAINE 1% MPF 30 ML VIAL ONE (22:08)
[2020-09-11 22:42] LABS: RPR (Rapid Plasma Reagin) NON-REACT (NON-REACT)
[2020-09-12] MEDS ORDERED: PROMETHAZINE INJ 25 MG/ML AMP ONE (00:58)
[2020-09-12] MEDS ORDERED: BUTORPHANOL 1 MG/ML INJ ONE (00:58)
[2020-09-12] MEDS ORDERED: CEFAZOLIN/SWI 2gm 2 GM/20 ML SYR ONE (01:20)
--- NOTE | 2020-09-12 01:36 | P.PN ---
Date of Service: 09/12/20 (002) Delivery Note: Time: 09/12/20 AT 0025 Preop Dx: 39 week MSAF Postop Diagnosis: 39 week Single Live MSAF Velamentous Insertion of Cord Procedure: Manual removal of [place] Repair of first degree perineal laceration Delivering Physician: Nicanor Gamez MD Findings; Tight Nuchal cord x1 Viable female 8/9 weight: 7# 9oz First degree midline perineal laceration Velamentous insertion of cord requiring manual removal of placenta EBL: 300cc Meds: Ancef 2grm given pp because of manual of placenta Membranes: AROM at 2230 with Mod MSAF Anesthesia: Epidural Episiotomy: None Laceration: First degree midline perineal laceration repaired with 2-0 chromic Condition: mother and baby in room in good condition
[2020-09-12] MEDS ORDERED: CEFAZOLIN 2 GM in NA CHLORIDE 0.9% 100 ML IVPB ONE (01:50)
[2020-09-12] MEDS ORDERED: ONDANSETRON 4 MG (ODT) TAB PO PRN (02:15)
[2020-09-12] MEDS ORDERED: BISACODYL 10 MG RECTAL SUPP PR PRN (02:15)
[2020-09-12] MEDS ORDERED: Tdap (Diph,Pertuss(Acell),Tet Vac) 0.5 ML SYR IMVAC ONE (02:15)
[2020-09-12] MEDS ORDERED: Oxycodone HCl/Acetaminophen 1 TAB TAB PO PRN (02:15)
[2020-09-12] MEDS ORDERED: DOCUSATE NA/SENNA CONC 1 TAB PO PRN (02:15)
[2020-09-12] MEDS ORDERED: PROMETHAZINE INJ 25 MG/ML AMP IV ONE (06:02)
[2020-09-12] MEDS ORDERED: BUTORPHANOL 1 MG/ML INJ IV ONE (06:02)
[2020-09-12 07:10] LABS: Absolute Lymphocytes (CBC) 1.3 K/uL (0.7-4.9); Basophils % 0.4 % (0-1.3); Hematocrit 33.3 % (36.0-45.0); Lymphocytes % 6.4 % (15.3-44.8); MPV 11.2 fL (7.6-11.3); RBC Red Blood Cell Count 3.51 M/uL (3.86-4.86)
[2020-09-12] MEDS: IBUPROFEN 200 MG TAB PO PRN ×3 (07:15→21:00)
[2020-09-12 08:17] LABS: Blood Morphology Comment NOT SEEN (NOT SEEN); Platelet Estimate ADEQ; White Blood Cell Scan OK (OK)
[2020-09-12] MEDS: ACETAMINOPHEN 500 MG TAB PO PRN (11:25)
--- NOTE | 2020-09-12 12:16 | P.PN ---
Subjective Date of Service: 09/12/20 Primary Care Provider: Franco Chief Complaint: day 0 Subjective: Tolerating diet, Ambulating Review of Systems Unremarkable Physical Examination - Vital Signs Temperature: 36.5 C Blood Pressure: 134/72 Pulse: 89 Respirations: 18 - Physical Exam General: In no apparent distress, Oriented x3 - Studies Laboratory Data (last 24 hrs) 09/12/20 06:13: WBC 19.7 H D, Hgb 10.8 L, Hct 33.3 L, Plt Count 161 09/11/20 18:15: WBC 14.0 H, Hgb 12.1, Hct 35.9 L, Plt Count 166 Assessment And Plan - Current Problems (Diagnosis) (1) care and examination Current Visit: Yes Status: Acute - Plan Assessment: Doing well , Bleeding minimal , minimal pain, breast feeding. Plan: Continue present care DC tomorrow. Physician Review: Patient Assessed, Agree with Above Assessment and Plan
[2020-09-13] MEDS: IBUPROFEN 200 MG TAB PO PRN ×2 (05:50→11:27)
[2020-09-13 06:39] LABS: Basophils % 0.6 % (0-1.3); Hematocrit 32.5 % (36.0-45.0); Lymphocytes % 20.4 % (15.3-44.8); MPV 10.7 fL (7.6-11.3); RBC Red Blood Cell Count 3.42 M/uL (3.86-4.86)
[2020-09-13] MEDS: ACETAMINOPHEN 500 MG TAB PO PRN (09:46)
--- NOTE | 2020-09-13 11:31 | P.DS ---
Admission Date: 09/11/20 Discharge Date: 09/13/20 Primary Care Provider: Franco Disposition: ROUTINE DISCHARGE Discharge Condition: GOOD Reason for Admission: term , active labor - Problems (1) care and examination Current Visit: Yes Status: Acute Brief History of Present Illness: 20 y/o G1 at 39w1d ( ALLY 09/17/20 ) who was seen earlier today and sent home for false labor who now returns with stronger and more frequent contractions every 2-3 minutes. She denies ROM, fever, vaginal bleeding or changes in movement . Her course has been uncomplicated . She did require the 3hr OGTT because of failed 1hr testing. A Three hour testing was normal. She received the TdaP and Influenza vaccinations. She was tested for COVID last week and it was negative. No known exposure, no cough or fever. Hospital Course: 20 y/o G1 now P1 presented at 39wks in active labor, epiadural for anesthesia, progressed to complete quickly without pitocin, delivered uncomplicated with a small 1st degree perineal laceration. There was a velamentous insertion of the cord which required manual removal of the placenta, She received one dose of prophylactic antibiotics, Her WBC showed a leukocytosis (19k) but she remained afebrile and did not require any additional antibiotics. Her WBC was trending downward at discharge (14k).Patien discharged at PPD 1 09/12 doing well, Vital Signs/Physical Exam: Temp Pulse Resp BP Pulse Ox 36.5 C 69 18 126/77 09/13/20 07:24 09/13/20 07:24 09/13/20 07:24 09/13/20 07:24 Laboratory Data at Discharge: WBC 14.5 K/uL (4.3-10.9) H D 09/13/20 06:02 Hgb 10.7 g/dL (12.0-15.0) L 09/13/20 06:02 Hct 32.5 % (36.0-45.0) L 09/13/20 06:02 Plt Count 177 K/uL (152-406) 09/13/20 06:02 Home Medications: Promethazine HCl 50 mg PO Q4H PRN #15 tablet 08/28/20 Cetirizine HCl [Zyrtec] 10 mg PO DAILY 09/11/20 Iron 18 mg PO DAILY 09/11/20 Vitamin [ VITAMIN*] 1 tab PO DAILY 09/11/20 Ibuprofen [Motrin*] 600 mg PO Q6H PRN tab 09/13/20 Patient Discharge Instructions: Pelvic rest for 6 weeks. Continue vitamins. Call for any depression, fever, abnormal bleeding Diet: Regular Activity: Ad kelsey Followup: Karla Mathews MD [ACTIVE - CAN ADMIT] - (Follow up care with Dr. Mathews in 6 weeks for post care.) Time spent managing pt's care (in minutes): 15
[2020-09-13 12:04] VITALS: BP 124/70; TEMP 97.9
[2020-09-15 02:45] LABS: HBsAG Nonreactive (Nonreactive)
--- NOTE | 2020-11-06 14:13 | OP ---
Date of Procedure: 09/12/2020 Surgeon: SONIA ZAVALA Preoperative Diagnoses: 1.A 39-week intrauterine . 2.Meconium stained amniotic fluid. Postoperative Diagnoses: 1.A 39-week intrauterine , delivered. 2.Meconium stained amniotic fluid. 3.Velamentous insertion cord. Procedures Performed: 1.Spontaneous vaginal delivery. 2.Manual removal of placenta. 3.Repair of first-degree perineal laceration. Findings: Tight nuchal cord x1, viable female, apgars 8/9, weight 7 pounds 9 ounces. First-degree m idline perineal laceration. Velamentous insertion of cord required manual removal of placenta and me conium stained amniotic fluid. Estimated Blood Loss: 300 cc. Medications: Ancef 2 g because of manual removal. Anesthesia: Epidural. Episiotomy: None. Laceration: First-degree midline perineal laceration. Mother and baby's condition is good. Summary: This is a 20-year-old 1, para 0 at 39 weeks gestation who presented in active labor . She was noticed to have a meconium stained amniotic fluid after artificial rupture of membranes. The patient progressed well in labor and delivered spontaneously. At the time of delivery, there was noted to be a tight nuchal cord. This was reduced. The remainder of the was delivered witho ut complication. This produced a viable male, Apgars 8/9. Cord was clamed and cut. Infant was deli grupo out to pediatric team. Cord blood was obtained. Placenta was unable to be removed with sponta neous expulsion. There was a velamentous insertion of a cord. This required manual removal. A hand was introduced in the uterine cavity and the entire placenta was removed without difficulty. Afterw ards, there was minimal bleeding. Examination of the vulva revealed a first-degree perineal lacerati on. This was repaired with 2-0 chromic suture, running in interlocking fashion on the vagina and a s ubcuticular stitch on the perineum. The patient tolerated the procedure well. There was no postpart um hemorrhage. We will give the patient IV antibiotics prophylaxis for manual removal of the placent a. Mother and baby were in good condition. CRYSTAL/ANJELICA Voice ID: [id number] Report ID: [id number]
== END 2020-09-13 12:05 | disposition home or self-care (01) | DRG 807 ==
LOC: 2ND-WC 17:33
PROVIDERS: ADMIT Specialist; ATTEND Specialist
PROC: 10E0XZZ Delivery of Products of Conception, External Approach (ICD-10-PCS; principal; 2020-09-12)
PROC: 10D17Z9 Manual Extraction of Products of Conception, Retained, Via Natural or Artificial Opening (ICD-10-PCS; 2020-09-12)
PROC: 0HQ9XZZ Repair Perineum Skin, External Approach (ICD-10-PCS; 2020-09-12)
PROC: 10907ZC Drainage of Amniotic Fluid, Therapeutic from Products of Conception, Via Natural or Artificial Opening (ICD-10-PCS; 2020-09-12)
DX: O77.0 Labor and delivery complicated by meconium in amniotic fluid (principal); Z37.0 Single live birth; O70.0 First degree perineal laceration during delivery; Z3A.39 39 weeks gestation of pregnancy; Z88.1 Allergy status to other antibiotic agents; Z88.8 Allergy status to other drugs, medicaments and biological substances; Z79.899 Other long term (current) drug therapy; Z20.822 Contact with and (suspected) exposure to COVID-19; O43.129 Velamentous insertion of umbilical cord, unspecified trimester
CPT/HCPCS: 36415; 81001; 85025; 86592; 86901; 87340; 99218; J0595; J0690; J2210; J2550; J2590; J2795; J3010; J7120; U0003